=== PATIENT | male | born 1935 | race Asian ===

== ENCOUNTER 2018-09-28 05:49 | Inpatient (IN) | payer OTHER, MEDICAID ==
[~2018-09-28] VITALS: Ht 170.2 cm; Wt 59.0 kg
[2018-09-28 05:50] VITALS: BP 117/82
--- NOTE | 2018-09-28 06:00 | NUR ---
ED Nurse Note: Patient brought in by ambulance from home c/o generalized weakness, patient states that he began feeling weak yesterday, denies any pain, states that this weakness is a new onset, patient presents with sutures on the left thumb, states that a car door was slammed on it. patient is alert and oriented x4, is right sided hearing, patient hooked up to monitor, will wait for further orders
[2018-09-28 06:54] LABS: BASOPHILS % (AUTO) 2.2 % (0.0-2.0); EOSINOPHILS % (AUTO) 0.7 % (0.0-3.0); HEMATOCRIT 37.4 % (42.0-52.0); HEMOGLOBIN 12.7 G/DL (14.2-18.0); LYMPHOCYTES % (AUTO) 23.2 % (20.0-45.0); MEAN CORPUSCULAR VOLUME 94 FL (80-99); MONOCYTES % (AUTO) 6.5 % (1.0-10.0); NEUTROPHILS % (AUTO) 67.4 % (45.0-75.0); PLATELET COUNT 208 K/UL (150-450); RED BLOOD COUNT 3.98 M/UL (4.70-6.10); RED CELL DISTRIBUTION WIDTH 13.9 % (11.6-14.8); WHITE BLOOD COUNT 4.2 K/UL (4.8-10.8)
[2018-09-28 07:03] LABS: APPEARANCE,URINE CLEAR; BILIRUBIN, URINE NEGATIVE (NEGATIVE); COLOR,URINE PALE YELLOW; GLUCOSE, URINE (UA) NEGATIVE (NEGATIVE); KETONES,URINE NEGATIVE (NEGATIVE); LEUKOCYTE ESTERASE ,URINE 1+ (NEGATIVE); NITRITE,URINE NEGATIVE (NEGATIVE); PH,URINE 7 (4.5-8.0); PROTEIN,URINE NEGATIVE (NEGATIVE); UROBILINOGEN,URINE NORMAL MG/DL (0.0-1.0)
[2018-09-28 07:05] LABS: ANION GAP 11 mmol/L (5-15); BLOOD UREA NITROGEN 15 mg/dL (7-18); CARBON DIOXIDE 26 MMOL/L (21-32); CHLORIDE 102 MMOL/L (98-107); POTASSIUM 3.7 MMOL/L (3.5-5.1); SODIUM 139 MMOL/L (136-145)
--- NOTE | 2018-09-28 07:12 | Emergency Room Report ---
History of Present Illness General Chief Complaint: Generalized Weakness Source: Patient Present Illness HPI The patient presents via EMS. He is complaining about generalized weakness. He sprayed bojorquez spray in his house. He started feeling weak after this and short of breath with chest heaviness. Because of the smell in his house he went to stay in his car. Last night he was having chills. This morning he was having difficulty holding up his head and walking. The patient states he has not been drinking a lot of fluids because he does not want to have to get up to urinate. No fevers, chest pain, palpitations, nausea, vomiting, diarrhea, dysuria, abdominal pain, shortness of breath, depression, visual changes, headache. Decreased hearing Allergies: Coded Allergies: No Known Allergies (Unverified , 09/28/18) Patient History Past Medical History: see triage record Social History: Denies: smoking, alcohol use, drug use Social History Narrative At home Reviewed Nursing Documentation: PMH: Agreed; PSxH: Agreed Nursing Documentation-PMH Past Medical History: No Stated History Review of Systems All Other Systems: negative except mentioned in HPI Physical Exam Vital Signs Date Time Temp Pulse Resp B/P (MAP) Pulse Ox O2 Delivery O2 Flow Rate FiO2 09/28/18 05:44 97.9 92 18 147/82 (103) 94 Sp02 EP Interpretation: reviewed, normal General Appearance: well appearing, no apparent distress, GCS 15 Head: normocephalic Eyes: bilateral eye normal inspection, bilateral eye PERRL, bilateral eye EOMI ENT: dry mucus membranes, other Neck: supple Respiratory: lungs clear, normal breath sounds Cardiovascular #1: regular rate, rhythm Cardiovascular #2: 2+ radial (R) Gastrointestinal: normal inspection, normal bowel sounds, non tender, no mass, non-distended Genitourinary: no CVA tenderness Musculoskeletal: back normal, gait/station normal, normal range of motion, no calf tenderness Neurologic: alert, business transformation manager III-XII nml as tested, DTRs symmetric, sensory intact, speech normal, motor weakness - Diffuse, oriented - X2 Psychiatric: mood/affect normal Skin: normal inspection, warm/dry Medical Decision Making Diagnostic Impression: Primary Impression: Chest pressure Additional Impressions: Weakness Hypothyroid Qualified Codes: E03.9 - Hypothyroidism, unspecified Dehydration ER Course Patient presents with weakness after being exposed to Lance neck to side. Differential includes acute myocardial infarction, dehydration, sepsis, electrolyte abnormality, myasthenia gravis amongst others. The patient will be evaluated with EKG, chest x-ray and labs. The patient will receive IV hydration as he is clinically dehydrated. EKG with normal sinus rhythm occasional PVCs. Nonspecific ST-T wave changes. Long QT interval. Chest x-ray increased right hilum and COPD. Labs with elevated TSH. Initial troponin negative. Cortisol administered. Patient admitted to the hospital for further evaluation and possible old treatment of hypothyroidism. Slightly better with IV hydration. Laboratory Tests Test 09/28/18 06:30 White Blood Count 4.2 K/UL (4.8-10.8) L Red Blood Count 3.98 M/UL (4.70-6.10) L Hemoglobin 12.7 G/DL (14.2-18.0) L Hematocrit 37.4 % (42.0-52.0) L Mean Corpuscular Volume 94 FL (80-99) Mean Corpuscular Hemoglobin 32.0 PG (27.0-31.0) H Mean Corpuscular Hemoglobin Concent 34.0 G/DL (32.0-36.0) Red Cell Distribution Width 13.9 % (11.6-14.8) Platelet Count 208 K/UL (150-450) Mean Platelet Volume 5.0 FL (6.5-10.1) L Neutrophils (%) (Auto) 67.4 % (45.0-75.0) Lymphocytes (%) (Auto) 23.2 % (20.0-45.0) Monocytes (%) (Auto) 6.5 % (1.0-10.0) Eosinophils (%) (Auto) 0.7 % (0.0-3.0) Basophils (%) (Auto) 2.2 % (0.0-2.0) H Erythrocyte Sedimentation Rate 9 MM/HR (0-20) Prothrombin Time 10.5 SEC (9.30-11.50) Prothrombin Time INR 1.0 (0.9-1.1) PTT 28 SEC (23-33) Urine Color Pale yellow Urine Appearance Clear Urine pH 7 (4.5-8.0) Urine Specific [place] 1.015 (1.005-1.035) Urine Protein Negative (NEGATIVE) Urine Glucose (UA) Negative (NEGATIVE) Urine Ketones Negative (NEGATIVE) Urine Blood 1+ (NEGATIVE) H Urine Nitrite Negative (NEGATIVE) Urine Bilirubin Negative (NEGATIVE) Urine Urobilinogen Normal MG/DL (0.0-1.0) Urine Leukocyte Esterase 1+ (NEGATIVE) H Urine RBC 0-2 /HPF (0 - 0) H Urine WBC 0-2 /HPF (0 - 0) Urine Squamous Epithelial Cells Occasional /LPF Urine Calcium Oxalate Crystals Few /LPF (NONE) Urine Bacteria Occasional /HPF (NONE) Sodium Level 139 MMOL/L (136-145) Potassium Level 3.7 MMOL/L (3.5-5.1) Chloride Level 102 MMOL/L (98-107) Carbon Dioxide Level 26 MMOL/L (21-32) Anion Gap 11 mmol/L (5-15) Blood Urea Nitrogen 15 mg/dL (7-18) Creatinine 1.0 MG/DL (0.55-1.30) Estimate Glomerular Filtration Rate mL/min (>60) Glucose Level 142 MG/DL (74-106) H Lactic Acid Level 1.50 mmol/L (0.4-2.0) Uric Acid 5.1 MG/DL (2.6-7.2) Calcium Level 9.0 MG/DL (8.5-10.1) Magnesium Level 2.1 MG/DL (1.8-2.4) Total Bilirubin 0.9 MG/DL (0.2-1.0) Aspartate Amino Transferase (AST) 21 U/L (15-37) Alanine Aminotransferase (ALT) 20 U/L (12-78) Alkaline Phosphatase 55 U/L (46-116) Total Creatine Kinase 155 U/L (26-308) Troponin I 0.019 ng/mL (0.000-0.056) Pro-B-Type Natriuretic Peptide 1102 pg/mL (0-125) H Total Protein 7.0 G/DL (6.4-8.2) Albumin 3.6 G/DL (3.4-5.0) Globulin 3.4 g/dL Albumin/Globulin Ratio 1.1 (1.0-2.7) Lipase 144 U/L (73-393) Thyroid Stimulating Hormone (TSH) 6.012 uiU/mL (0.358-3.740) EKG Diagnostic Results Rate: normal Rhythm: NSR ST Segments: no acute changes ASA given to the pt in ED: Yes Rhythm Strip Diag. Results EP Interpretation: yes Rhythm: NSR, no PVC's, no ectopy Chest X-Ray Diagnostic Results Chest X-Ray Diagnostic Results : Chest X-Ray Ordered: Yes # of Views/Limited/Complete: 1 View Indication: Other EP Interpretation: Yes Interpretation: no consolidation, no effusion, no pneumothorax Impression: No acute disease Electronically Signed by: Electronically signed by Herman Kulkarni MD Last Vital Signs Date Time Temp Pulse Resp B/P (MAP) Pulse Ox O2 Delivery O2 Flow Rate FiO2 09/28/18 09:17 97.9 79 16 128/53 97 Room Air Status: improved Disposition: ADMITTED INPATIENT Condition: Serious Herman Kulkarni MD Sep 28, 2018 07:11
--- NOTE | 2018-09-28 07:16 | NUR ---
ED Nurse Note: received pt from JEAN CARLOS Collins. Pt resting in bed, a/ox4. Per RN, pt came to ER due to generalized weakness since yesterday. No labor breathing, able to answer in full sentences. All needs met. No s/s of distress. waiting for bed assignments.
[2018-09-28 07:17] LABS: ALANINE AMINOTRANSFERASE 20 U/L (12-78); ALBUMIN 3.6 G/DL (3.4-5.0); ALBUMIN/GLOBULIN RATIO 1.1 (1.0-2.7); ALKALINE PHOSPHATASE 55 U/L (46-116); ASPARTATE AMINO TRANSFERASE 21 U/L (15-37); BILIRUBIN,TOTAL 0.9 MG/DL (0.2-1.0); CREATINE KINASE 155 U/L (26-308)
[2018-09-28] MEDS ORDERED: Hydrocortisone 100mg Inj IV ONE (07:45)
[2018-09-28 07:55] VITALS: BP 125/73
--- NOTE | 2018-09-28 09:17 | NUR ---
TRANSFER TO FLOOR: Patient transferred to [facility] as ordered via [place] with lunchroom monitor . Report given to Chayito ELLIS and JEAN CARLOS Jacobsen. Belongings given to JEAN CARLOS Jacobsen. No s/s of distress.
[2018-09-28] MEDS ORDERED: Albuterol/Ipratropium 3ml neb HHN PRN (09:30)
[2018-09-28] MEDS ORDERED: Miralax 17gm pkt ORAL PRN (09:30)
[2018-09-28] MEDS ORDERED: Promethazine/Codeine 5ml UD ORAL PRN (09:30)
[2018-09-28] MEDS ORDERED: Morphine Sulfate 2mg/ml Inj(IV/IM USE ONLY) IVP PRN (09:30)
[2018-09-28] MEDS ORDERED: LORazepam Inj 2mg/ml 1ml IV PRN (09:30)
[2018-09-28] MEDS ORDERED: Nitroglycerin Subl 0.4mg tab SL PRN (09:30)
--- NOTE | 2018-09-28 10:00 | NUR ---
NURSE NOTES: Patient Transferred from Ed, and received report from Teddy/RN, Heart monitor placed, IV on left forearm, 20 gauge, patent, no bleeding or infiltration noted. Belonging check done. Vital signs are stable, No acute distress/SOB noted at this time. judy presented on admission with resolving DTI's R and L ischium and sacrococcygeal area and Non-blanchable erythema without fluctuance or induration noted to R and L heels. Pt denied tenderness when both heels minimally palpated. Picture taken and uploaded in [employer]. Bed in low position and locked, Call light within reach. Will continue plan of care.
[2018-09-28] MEDS: D5 1/2NS 1,000 ML IV SCH (10:26)
[2018-09-28 10:30] VITALS: BP 125/58
--- NOTE | 2018-09-28 10:55 | Diagnostic Imaging Report ---
Indication: Shortness of breath for one day Technique: One view of the chest Comparison: none Findings: Patient is rotated to the left. The heart is mildly enlarged. The aorta is tortuous and calcified. The lungs and pleural spaces are clear. There is thoracic scoliotic deformity Impression: No acute process Cardiomegaly Other findings as noted
--- NOTE | 2018-09-28 12:43 | NUR ---
ST NOTE: BEDSIDE SWALLOW EVAL RECEIVED BEDSIDE SWALLOW EVAL ORDER CHART REVIEWED PRIOR THE EVALUATION REFERRED BY DR. HERNADEZ, PRIMARY PHYSICIAN, DR. HARRIS PT IS A 83-YEAR-OLD MALE WHO WAS ADMITTED DUE TO WEAKNESS. PER PT, FEELING WEAKNESS; AND UNABLE TO SIT UP AND WALK. PT HAS H/O THORACIC SCOLIOTIC DEFORMITY AND HYPOTHYROIDISM. CURRENT STATUS: PT SEEN AT BEDSIDE IN LATE AM. RNYASEMIN, AT BEDSIDE. PT ALERT, COOPERATIVE, ABLE TO FOLLOW DIRECTION, ORIENTED. PT STATES STILL FEELING WEAK, UNABLE TO SIT UP AND WALK. DENIED ANY SWALLOWING DIFFICULTY.. GIVEN PO TRIALS: THIN(CUP-ONE SIP), PUREE(TSP) AND CRACKER X 1 INITIAL IMPRESSION: PT EDENTULOUS. (PER PT, HIS DENTURES ARE AT HOME. SLOW MASTICATION TIME, MILDLY INCREASED ORAL TRANSIT TIME(3 SECONDS) UNTIL PT INITIATED PHARYNGEAL SWALLOW, GOOD LARYNGEAL ELEVATION, NO OVERT S/S OF ASPIRATION WAS NOTED. OVERALL, PT'S SWALLOWING IS FUNCTIONAL. RECOMMENDATIONS: 1. SLOWLY INITIATE MECH SOFT(CHOPPED) WITH THIN LIQUIDS 2. GENERAL ASPIRATION PRECAUTIONS 3. ADVANCED DIET TOLERATED. POSTED ASPIRATION PRECAUTIONS
--- NOTE | 2018-09-28 13:00 | NUR ---
NURSE NOTES: Dr. Arevalo aware of DTI on patient's Ischium.
--- NOTE | 2018-09-28 13:28 | NUR ---
NURSE NOTES:WOUND CARE NOTES:Pt presented on admission with resolving DTPI's R and L ischium and sacrococcygeal area. Maroon discoloration with surrounding non-blanchable erythema without induration or fluctuance noted (L)1.2xcm x (W)0.7cm. Dark brown discoloration with marginal erythema along edges R ischium. Base of wound dry and firm.(L)4.5cm x (W)4.5cm. Dark brown discoloration partially opened L ischium. Base of wound is firm. No exudate noted. (L)4cm x (W)3.5cm. Periwound without erythema or induration.Non-blanchable erythema without fluctuance or induration noted to R and L heels. Pt denied tenderness when both heels minimally palpated. Pt demonstrated ability to reposition self when cued. Educated and encouraged pt to frequently turn while in bed and to avoid sliding against bed-linens to prevent further skin breakdown. Pt also instructed to call for asst with toileting to prevent prolonged exposure to urine or faeces. Tx.Plan. Apply Moisture Barrier Paste to sacrum ,R and L ischium .Cover each site with Optifoam drsgs. Change every 3 days and prn. Apply Cavilon Skin Barrier to R and L heels. Cover each heel with Optifoam drsg. Change every 7 days and prn. Encourage and assist as needed with repositioning at least every 2hours or as tolerated. Off-load heels with pillow.
--- NOTE | 2018-09-28 14:13 | Consultation ---
History of Present Illness General Date patient seen: Sep 28, 2018 Chief Complaint: Generalized Weakness Present Illness HPI 83 year old male presented via EMS to Er for evaluation of generalized weakness. He sprayed bojorquez spray in his house. He started feeling weak after this and short of breath with chest heaviness. Because of the smell in his house he went to stay in his car. Last night he was having chills. This morning he was having difficulty holding up his head and walking. He has not slept for the last two days. Allergies: Coded Allergies: No Known Allergies (Unverified , 09/28/18) Patient History Healthcare decision maker Resuscitation status Full Code Advanced Directive on File Review of Systems All Other Systems: negative except mentioned in HPI Physical Exam General Appearance: cachetic, thin Lines, tubes and drains: peripheral, central line HEENT: normocephalic, atraumatic Neck: non-tender, normal alignment Respiratory/Chest: chest wall non-tender, lungs clear Breasts: no masses Cardiovascular/Chest: normal rate Abdomen: normal bowel sounds, soft Genitourinary/Rectal: normal genital exam Last 24 Hour Vital Signs Date Time Temp Pulse Resp B/P (MAP) Pulse Ox O2 Delivery O2 Flow Rate FiO2 09/28/18 12:22 Room Air 09/28/18 12:11 Room Air 09/28/18 09:17 97.9 79 16 128/53 97 Room Air 09/28/18 07:55 97.9 73 18 125/73 98 Room Air 09/28/18 05:50 97.9 92 18 117/82 94 09/28/18 05:50 92 18 09/28/18 05:44 97.9 92 18 147/82 (103) 94 Laboratory Tests Test 09/28/18 06:30 White Blood Count 4.2 K/UL (4.8-10.8) L Red Blood Count 3.98 M/UL (4.70-6.10) L Hemoglobin 12.7 G/DL (14.2-18.0) L Hematocrit 37.4 % (42.0-52.0) L Mean Corpuscular Volume 94 FL (80-99) Mean Corpuscular Hemoglobin 32.0 PG (27.0-31.0) H Mean Corpuscular Hemoglobin Concent 34.0 G/DL (32.0-36.0) Red Cell Distribution Width 13.9 % (11.6-14.8) Platelet Count 208 K/UL (150-450) Mean Platelet Volume 5.0 FL (6.5-10.1) L Neutrophils (%) (Auto) 67.4 % (45.0-75.0) Lymphocytes (%) (Auto) 23.2 % (20.0-45.0) Monocytes (%) (Auto) 6.5 % (1.0-10.0) Eosinophils (%) (Auto) 0.7 % (0.0-3.0) Basophils (%) (Auto) 2.2 % (0.0-2.0) H Erythrocyte Sedimentation Rate 9 MM/HR (0-20) Prothrombin Time 10.5 SEC (9.30-11.50) Prothromb Time International Ratio 1.0 (0.9-1.1) Activated Partial Thromboplast Time 28 SEC (23-33) Urine Color Pale yellow Urine Appearance Clear Urine pH 7 (4.5-8.0) Urine Specific [place] 1.015 (1.005-1.035) Urine Protein Negative (NEGATIVE) Urine Glucose (UA) Negative (NEGATIVE) Urine Ketones Negative (NEGATIVE) Urine Blood 1+ (NEGATIVE) H Urine Nitrite Negative (NEGATIVE) Urine Bilirubin Negative (NEGATIVE) Urine Urobilinogen Normal MG/DL (0.0-1.0) Urine Leukocyte Esterase 1+ (NEGATIVE) H Urine RBC 0-2 /HPF (0 - 0) H Urine WBC 0-2 /HPF (0 - 0) Urine Squamous Epithelial Cells Occasional /LPF Urine Calcium Oxalate Crystals Few /LPF (NONE) Urine Bacteria Occasional /HPF (NONE) Sodium Level 139 MMOL/L (136-145) Potassium Level 3.7 MMOL/L (3.5-5.1) Chloride Level 102 MMOL/L (98-107) Carbon Dioxide Level 26 MMOL/L (21-32) Anion Gap 11 mmol/L (5-15) Blood Urea Nitrogen 15 mg/dL (7-18) Creatinine 1.0 MG/DL (0.55-1.30) Estimat Glomerular Filtration Rate mL/min (>60) Glucose Level 142 MG/DL (74-106) H Lactic Acid Level 1.50 mmol/L (0.4-2.0) Uric Acid 5.1 MG/DL (2.6-7.2) Calcium Level 9.0 MG/DL (8.5-10.1) Magnesium Level 2.1 MG/DL (1.8-2.4) Total Bilirubin 0.9 MG/DL (0.2-1.0) Aspartate Amino Transf (AST/SGOT) 21 U/L (15-37) Alanine Aminotransferase (ALT/SGPT) 20 U/L (12-78) Alkaline Phosphatase 55 U/L (46-116) Total Creatine Kinase 155 U/L (26-308) Troponin I 0.019 ng/mL (0.000-0.056) Pro-B-Type Natriuretic Peptide 1102 pg/mL (0-125) H Total Protein 7.0 G/DL (6.4-8.2) Albumin 3.6 G/DL (3.4-5.0) Globulin 3.4 g/dL Albumin/Globulin Ratio 1.1 (1.0-2.7) Lipase 144 U/L (73-393) Thyroid Stimulating Hormone (TSH) 6.012 uiU/mL (0.358-3.740) Height (Feet): 5 Height (Inches): 7.00 Weight (Pounds): 130 Medications Current Medications Medications (Trade) Dose Ordered Sig/[place] Route PRN Reason Start Time Stop Time Status Last Admin Dose Admin Acetaminophen (Tylenol) 650 mg Q4H PRN ORAL fever 09/28/18 09:30 10/28/18 09:29 Albuterol/ Ipratropium (Albuterol/ Ipratropium) 3 ml Q4H PRN HHN Shortness of Breath 09/28/18 09:30 10/03/18 09:29 Clonidine HCl (Catapres Tab) 0.1 mg Q4H PRN ORAL For High Blood Pressure 09/28/18 09:30 10/28/18 09:29 Dextrose (Dextrose 50%) 25 ml Q30M PRN IV Hypoglycemia 09/28/18 09:30 10/28/18 09:29 Dextrose (Dextrose 50%) 50 ml Q30M PRN IV Hypoglycemia 09/28/18 09:30 10/28/18 09:29 Dextrose/Sodium Chloride 1,000 ml @ 50 mls/hr Q20H IV 09/28/18 09:22 10/28/18 09:21 09/28/18 10:26 Heparin Sodium (Porcine) (Heparin 5000 units/ml) 5,000 units EVERY 12 HOURS SUBQ 09/28/18 21:00 10/28/18 20:59 Lorazepam (Ativan 2mg/ml 1ml) 0.5 mg Q4H PRN IV For Anxiety 09/28/18 09:30 10/05/18 09:29 Morphine Sulfate (Morphine Sulfate) 1 mg Q4H PRN IVP For Pain 7-09/28/18 09:30 10/05/18 09:29 Nitroglycerin (Ntg) 0.4 mg Q5M X 3 DOSES PRN SL Prn Chest Pain 09/28/18 09:30 10/28/18 09:29 Ondansetron HCl (Zofran) 4 mg Q6H PRN IVP Nausea & Vomiting 09/28/18 09:30 10/28/18 09:29 Polyethylene Glycol (Miralax) 17 gm HSPRN PRN ORAL Constipation 09/28/18 09:30 10/28/18 09:29 Promethazine HCl/ Codeine (Phenergan with Codeine) 5 ml Q4H PRN ORAL For Cough 09/28/18 09:30 10/28/18 09:29 Temazepam (Restoril) 15 mg HSPRN PRN ORAL Insomnia 09/28/18 09:30 10/05/18 09:29 Assessment/Plan Problem List: (1) Failure to thrive SNOMED: 87574977 (2) Severe protein-calorie malnutrition ICD Codes: E43 - Unspecified severe protein-calorie malnutrition SNOMED: 312706786, [id number], [id number] Assessment/Plan: calorie count swallow evaluation pt/ot dvt prophylaxis Fabrciio Arevalo MD Sep 28, 2018 14:13
--- NOTE | 2018-09-28 14:30 | NUR ---
PT EVALUATION NOTE Patient seen for initial evaluation, see complete evaluation for details. Patient presents with impaired ability to complete bed mobility and transfer activities and to ambulate due to generalized weakness and c/o dizziness. Patient will benefit from skilled inpatient PT intervention to address strength, balance, safety and functional mobility. Recommend discharge to SNF for short term rehab vs home with assistance as patient lives alone. DME needs to be determined based on patient progress, may need assistive device for ambulation (FWW vs SPC). Addendum: 09/28/18 at 1505 by RC MARTINEZ PT Amended: Links added.
[2018-09-28 16:00] VITALS: BP 112/51
--- NOTE | 2018-09-28 18:33 | Consultation ---
History of Present Illness General Date patient seen: Sep 28, 2018 Chief Complaint: Generalized Weakness Referring physician: Dr. Robles Present Illness HPI Roel Grover is a 83 year old male presented via EMS to [facility] for evaluation of generalized weakness. He sprayed bojorquez spray in his house. He started feeling weak after this and short of breath with chest heaviness. Because of the smell in his house he went to stay in his car. Last night he was having chills. This morning he was having difficulty holding up his head and walking. He has not slept for the last two days. Neurological consultation is requested for assessment of his weakness. Allergies: Coded Allergies: No Known Allergies (Unverified , 09/28/18) Medication History No Active Prescriptions or Reported Meds Patient History Healthcare decision maker Resuscitation status Full Code Advanced Directive on File Past Medical/Surgical History Past Medical/Surgical History: (1) Hypothyroid (2) Failure to thrive Physical Exam General Appearance: WD/WN, no apparent distress, alert, alert oriented x3 Lines, tubes and drains: peripheral HEENT: normocephalic, atraumatic, anicteric, mucous membranes moist, PERRL, EOMI, pharynx normal, supple, no JVD Neck: non-tender, normal alignment, supple, normal inspection Respiratory/Chest: lungs clear, normal breath sounds, no respiratory distress, no accessory muscle use Cardiovascular/Chest: normal peripheral pulses, normal rate, no JVD Last 24 Hour Vital Signs Date Time Temp Pulse Resp B/P (MAP) Pulse Ox O2 Delivery O2 Flow Rate FiO2 09/28/18 16:00 80 09/28/18 16:00 98.1 78 18 112/51 (71) 96 09/28/18 12:22 Room Air 09/28/18 12:11 Room Air 09/28/18 12:00 77 09/28/18 10:30 97.5 95 18 125/58 (80) 96 09/28/18 09:17 97.9 79 16 128/53 97 Room Air 09/28/18 07:55 97.9 73 18 125/73 98 Room Air 09/28/18 05:50 97.9 92 18 117/82 94 09/28/18 05:50 92 18 09/28/18 05:44 97.9 92 18 147/82 (103) 94 Laboratory Tests Test 09/28/18 06:30 White Blood Count 4.2 K/UL (4.8-10.8) L Red Blood Count 3.98 M/UL (4.70-6.10) L Hemoglobin 12.7 G/DL (14.2-18.0) L Hematocrit 37.4 % (42.0-52.0) L Mean Corpuscular Volume 94 FL (80-99) Mean Corpuscular Hemoglobin 32.0 PG (27.0-31.0) H Mean Corpuscular Hemoglobin Concent 34.0 G/DL (32.0-36.0) Red Cell Distribution Width 13.9 % (11.6-14.8) Platelet Count 208 K/UL (150-450) Mean Platelet Volume 5.0 FL (6.5-10.1) L Neutrophils (%) (Auto) 67.4 % (45.0-75.0) Lymphocytes (%) (Auto) 23.2 % (20.0-45.0) Monocytes (%) (Auto) 6.5 % (1.0-10.0) Eosinophils (%) (Auto) 0.7 % (0.0-3.0) Basophils (%) (Auto) 2.2 % (0.0-2.0) H Erythrocyte Sedimentation Rate 9 MM/HR (0-20) Prothrombin Time 10.5 SEC (9.30-11.50) Prothromb Time International Ratio 1.0 (0.9-1.1) Activated Partial Thromboplast Time 28 SEC (23-33) Urine Color Pale yellow Urine Appearance Clear Urine pH 7 (4.5-8.0) Urine Specific Ulman 1.015 (1.005-1.035) Urine Protein Negative (NEGATIVE) Urine Glucose (UA) Negative (NEGATIVE) Urine Ketones Negative (NEGATIVE) Urine Blood 1+ (NEGATIVE) H Urine Nitrite Negative (NEGATIVE) Urine Bilirubin Negative (NEGATIVE) Urine Urobilinogen Normal MG/DL (0.0-1.0) Urine Leukocyte Esterase 1+ (NEGATIVE) H Urine RBC 0-2 /HPF (0 - 0) H Urine WBC 0-2 /HPF (0 - 0) Urine Squamous Epithelial Cells Occasional /LPF Urine Calcium Oxalate Crystals Few /LPF (NONE) Urine Bacteria Occasional /HPF (NONE) Sodium Level 139 MMOL/L (136-145) Potassium Level 3.7 MMOL/L (3.5-5.1) Chloride Level 102 MMOL/L (98-107) Carbon Dioxide Level 26 MMOL/L (21-32) Anion Gap 11 mmol/L (5-15) Blood Urea Nitrogen 15 mg/dL (7-18) Creatinine 1.0 MG/DL (0.55-1.30) Estimat Glomerular Filtration Rate mL/min (>60) Glucose Level 142 MG/DL (74-106) H Lactic Acid Level 1.50 mmol/L (0.4-2.0) Uric Acid 5.1 MG/DL (2.6-7.2) Calcium Level 9.0 MG/DL (8.5-10.1) Magnesium Level 2.1 MG/DL (1.8-2.4) Total Bilirubin 0.9 MG/DL (0.2-1.0) Aspartate Amino Transf (AST/SGOT) 21 U/L (15-37) Alanine Aminotransferase (ALT/SGPT) 20 U/L (12-78) Alkaline Phosphatase 55 U/L (46-116) Total Creatine Kinase 155 U/L (26-308) Troponin I 0.019 ng/mL (0.000-0.056) Pro-B-Type Natriuretic Peptide 1102 pg/mL (0-125) H Total Protein 7.0 G/DL (6.4-8.2) Albumin 3.6 G/DL (3.4-5.0) Globulin 3.4 g/dL Albumin/Globulin Ratio 1.1 (1.0-2.7) Lipase 144 U/L (73-393) Thyroid Stimulating Hormone (TSH) 6.012 uiU/mL (0.358-3.740) Height (Feet): 5 Height (Inches): 7.00 Weight (Pounds): 130 Medications Current Medications Medications (Trade) Dose Ordered Sig/Eugenia Route PRN Reason Start Time Stop Time Status Last Admin Dose Admin Acetaminophen (Tylenol) 650 mg Q4H PRN ORAL fever 09/28/18 09:30 10/28/18 09:29 Albuterol/ Ipratropium (Albuterol/ Ipratropium) 3 ml Q4H PRN HHN Shortness of Breath 09/28/18 09:30 10/03/18 09:29 Clonidine HCl (Catapres Tab) 0.1 mg Q4H PRN ORAL For High Blood Pressure 09/28/18 09:30 10/28/18 09:29 Dextrose (Dextrose 50%) 25 ml Q30M PRN IV Hypoglycemia 09/28/18 09:30 10/28/18 09:29 Dextrose (Dextrose 50%) 50 ml Q30M PRN IV Hypoglycemia 09/28/18 09:30 10/28/18 09:29 Dextrose/Sodium Chloride 1,000 ml @ 50 mls/hr Q20H IV 09/28/18 09:22 10/28/18 09:21 09/28/18 10:26 Heparin Sodium (Porcine) (Heparin 5000 units/ml) 5,000 units EVERY 12 HOURS SUBQ 09/28/18 21:00 10/28/18 20:59 Lorazepam (Ativan 2mg/ml 1ml) 0.5 mg Q4H PRN IV For Anxiety 09/28/18 09:30 10/05/18 09:29 Morphine Sulfate (Morphine Sulfate) 1 mg Q4H PRN IVP For Pain 10-2409/28/18 09:30 10/05/18 09:29 Nitroglycerin (Ntg) 0.4 mg Q5M X 3 DOSES PRN SL Prn Chest Pain 09/28/18 09:30 10/28/18 09:29 Ondansetron HCl (Zofran) 4 mg Q6H PRN IVP Nausea & Vomiting 09/28/18 09:30 10/28/18 09:29 Polyethylene Glycol (Miralax) 17 gm HSPRN PRN ORAL Constipation 09/28/18 09:30 10/28/18 09:29 Promethazine HCl/ Codeine (Phenergan with Codeine) 5 ml Q4H PRN ORAL For Cough 09/28/18 09:30 10/28/18 09:29 Temazepam (Restoril) 15 mg HSPRN PRN ORAL Insomnia 09/28/18 09:30 10/05/18 09:29 Assessment/Plan Problem List: (1) Dehydration ICD Codes: E86.0 - Dehydration SNOMED: 82598053 (2) Chest pressure ICD Codes: R07.89 - Other chest pain SNOMED: 020122689 (3) Hypothyroid Assessment & Plan: Commence Levothyroxine at 25mcg with possible increase to 35 -50mcg. ICD Codes: E03.9 - Hypothyroidism, unspecified SNOMED: 69668249 Qualifiers: Qualified Codes: E03.9 - Hypothyroidism, unspecified (4) Weakness ICD Codes: R53.1 - Weakness SNOMED: 46885510 (5) Failure to thrive SNOMED: 89206269 (6) Severe protein-calorie malnutrition ICD Codes: E43 - Unspecified severe protein-calorie malnutrition SNOMED: 288088030, 627625374, 233768950 Assessment/Plan: Correct Hypothyroid Na 135-145 PT Eval IV Hydration Echocardiogram recommended Care as per cardiology Q4 Hr Neuro Obs Asa 81mg ST Magaly Navas N.P. Sep 28, 2018 18:33
--- NOTE | 2018-09-28 19:30 | History and Physical Report ---
DATE OF ADMISSION: 09/28/2018 TIME SEEN: 1 p.m. CONSULTANTS: 1. Fabricio Arevalo M.D. 2. Demar Flores M.D. 3. 4. Roger Ny M.D. CHIEF COMPLAINT: Weakness, hypothyroid, insomnia. BRIEF HISTORY: The patient is an 83-year-old male, who lives at home, presents last night feeling weak after standing up suddenly. The patient also has been insomniac for three days and started on possible hypothyroid medication, came in [facility] of [facility] [place] [facility] and admitted to telemetry for further care. Currently, calm in bed, sleeping, no complaint. REVIEW OF SYSTEMS: No chest pain. No shortness of breath. No nausea, vomiting, or diarrhea. PAST MEDICAL HISTORY: Includes insomnia and possible hypothyroid. PAST SURGICAL HISTORY: Left pinky surgery. MEDICATIONS: Include heparin, albuterol, temazepam, lorazepam, Zofran, hydrocortisone. ALLERGIES: Denies. SOCIAL HISTORY: No smoking. No alcohol. No intravenous drug abuse. FAMILY HISTORY: Noncontributory. PHYSICAL EXAMINATION: GENERAL: Calm in bed, oriented x3, slightly weak. VITAL SIGNS: Show temperature is 97 degrees, pulse 89, respiratory rate 16, blood pressure 128/53. CARDIOVASCULAR: No murmurs. LUNGS: Distant and clear. ABDOMEN: Bowel sounds positive. Nontender and nondistended. EXTREMITIES: Showed no cyanosis or edema. NEUROLOGIC: The patient moves all extremities, slightly weak. LABORATORY AND DIAGNOSTIC DATA: Labs show white count 4.2, hemoglobin and hematocrit 12/37, platelets 208. BMP show glucose 142. Troponin 0.019. BNP is 1102. TSH is 6.012. Urinalysis show 1+ leukocyte esterase. ASSESSMENT: 1. Weakness. 2. Hypothyroid. 3. Urinary tract infection. 4. Possible ACS. 5. Anemia. 6. Insomnia. PLAN: 1. PT, OT, and dietary followup. 2. Antibiotics per Infectious Diseases. 3. Endocrine evaluation, Synthroid. 4. Cardiology evaluation. 5. We will continue to follow the patient. 6. CBC and BMP in the morning. Mendel Robles, D.O. DR: Jagdeep JOB#: [id number] CC:
--- NOTE | 2018-09-28 19:32 | NUR ---
HAND-OFF: Report given to Jordin/RN, Patient is awake and alert, No acute distress/SOB noted. Family at the bedside. Endorsed plan of care.
--- NOTE | 2018-09-28 19:33 | NUR ---
NURSE NOTES: Got report from Ro RN. Pt in stable condition. Denies any pain. No s/s of distress or discomfort noted. Pt resting in bed comfortably. Bed in low and locked position, call light within reach, bedside table within reach. Continue to monitor.
[2018-09-28 20:00] VITALS: BP 100/55
[2018-09-28] MEDS: Heparin 5000 units/ml inj SUBQ SCH (20:54)
[2018-09-29] VITALS: BP 104/50
--- NOTE | 2018-09-29 01:31 | Consultation ---
DATE OF CONSULTATION: 09/29/2018 CONSULTING PHYSICIAN: Herman Torres M.D. REQUESTING PHYSICIAN: Mendel Robles D.O. REASON FOR CONSULTATION: Possible acute coronary syndrome. HISTORY OF PRESENT ILLNESS: I was asked to see this patient in cardiology consultation while covering for Dr. Ny. The patient is an 83-year-old and he presented to the emergency room with generalized weakness this morning. He correlates this with possibly spraying spraying in his house and subsequently getting chest heaviness and shortness of breath. He apparently also had chills last evening and has not been able to sleep for the past two days as he has had to stay out of his house. The patient was seen in the emergency room. He had a troponin level of 0.019 and abnormal natriuretic peptide assay of around 1000. PAST MEDICAL HISTORY: Includes hypertension, hypothyroidism, osteoarthritis, and dementia. MEDICATIONS: Reviewed and reconciled. ALLERGIES: None known. FAMILY HISTORY: Noncontributory. SOCIAL HISTORY: Negative for smoking, alcohol, or substance abuse. REVIEW OF SYSTEMS: No fevers or chills. No history of abnormal blood clotting or asthma. No prior history of heart attack. No history of prostate cancer. No history of seizure or stroke. No history of diabetes. He is on thyroid replacement. PHYSICAL EXAMINATION: VITAL SIGNS: Afebrile, blood pressure 147/82, pulse 92, respirations 18, and oxygen saturation 94%. GENERAL: Appears well for age. No distress. HEENT: Pupils are reactive. Oropharynx clear. Mucous membranes moist. NECK: Supple. Jugular venous pressure normal. LUNGS: Clear. CARDIAC: Regular rhythm and rate. Normal S1 and S2 with no murmur. ABDOMEN: Soft and nontender. EXTREMITIES: No edema. NEUROLOGIC: Nonfocal. LABORATORY DATA: An echocardiogram revealed ejection fraction of 45% with mild regurgitation. No pulmonary hypertension. EKG - sinus rhythm, occasional PVC, and nonspecific ST-T wave change with QT prolongation. Chest x-ray with hyperinflation. White count 4.3 and hemoglobin 12.7. Magnesium was 2.1. Potassium 3.7, BUN 15, creatinine 1.0, and albumin 3.6. TSH was 6. Troponin 0.019. Lactic acid 1.5. Pro-natriuretic peptide is elevated at 1000. IMPRESSION: 1. Possible acute coronary syndrome. 2. Acute on chronic diastolic and systolic congestive heart failure. 3. Hypertensive heart disease. 4. Orthostasis. PLAN: 1. Check orthostatics. 2. Maintain adequate hydration. 3. Hold antihypertensives for now. 4. Antiplatelet therapy with aspirin. 5. Serial troponin level. 6. Thyroid replacement therapy. 7. DVT prophylaxis. Herman Torres M.D. DR: JEREMIAH JOB#: [id number] CC:
[2018-09-29 04:13] VITALS: BP 106/56
[2018-09-29] MEDS: D5 1/2NS 1,000 ML IV SCH (05:45)
--- NOTE | 2018-09-29 07:00 | NUR ---
HAND-OFF: Report given to Ruth EVANGELISTA. Endorsed plan of care.
[2018-09-29 07:08] LABS: AMMONIA 14 umol/L (11-32); BASOPHILS % (AUTO) 2.3 % (0.0-2.0); HEMATOCRIT 37.2 % (42.0-52.0); HEMOGLOBIN 12.8 G/DL (14.2-18.0); LYMPHOCYTES % (AUTO) 36.3 % (20.0-45.0); MEAN CORPUSCULAR VOLUME 93 FL (80-99); MONOCYTES % (AUTO) 9.6 % (1.0-10.0); NEUTROPHILS % (AUTO) 48.7 % (45.0-75.0); PLATELET COUNT 192 K/UL (150-450); RED CELL DISTRIBUTION WIDTH 13.2 % (11.6-14.8)
[2018-09-29 07:39] LABS: ANION GAP 6 mmol/L (5-15); BLOOD UREA NITROGEN 10 mg/dL (7-18); CALCIUM 8.2 MG/DL (8.5-10.1); CARBON DIOXIDE 27 MMOL/L (21-32); CHLORIDE 108 MMOL/L (98-107); CREATININE 0.9 MG/DL (0.55-1.30); POTASSIUM 3.4 MMOL/L (3.5-5.1); SODIUM 141 MMOL/L (136-145)
[2018-09-29 07:52] LABS: ALANINE AMINOTRANSFERASE 15 U/L (12-78); ALBUMIN 3.2 G/DL (3.4-5.0); ALBUMIN/GLOBULIN RATIO 1.4 (1.0-2.7); ALKALINE PHOSPHATASE 44 U/L (46-116); ASPARTATE AMINO TRANSFERASE 15 U/L (15-37); BILIRUBIN,TOTAL 1.1 MG/DL (0.2-1.0); CHOLESTEROL 158 MG/DL (< 200); HDL CHOLESTEROL 52 MG/DL (40-60); TRIGLYCERIDES 60 MG/DL (30-150)
[2018-09-29 07:53] LABS: BILIRUBIN,DIRECT 0.2 MG/DL (0.0-0.3)
--- NOTE | 2018-09-29 07:59 | NUR ---
received report from Alexei EVANGELISTA. Pt sleeping comfortably in bed, woke up to speak to nurses while giving report. Pt on panel monitor shows no signs of cardiac or respiratory distress. Bed is locked and in lowest position. Call light with in reach. will continue to monitor and follow plan of care.
[2018-09-29 08:30] VITALS: BP 107/55
--- NOTE | 2018-09-29 08:53 | Pulmonology Progress Note ---
Assessment/Plan Assessment/Plan ASSESSMENT acute CHF systolic and diastolic Hx of HTN with HTN heart disease Dehydration Severe protein calorie malnutrition Hypothyroidism with elevated TSH ? new onset, Failure to thrive PLAN OF CARE tele ECHO with rEF 45%, global LV hypokinesis, gr 2 diastolic dysfunction fup with cardio recs hold anti HTN for now troponin x 2 negative ; tele with SR, no acute ischemic changes; pt ruled out for acute SD check orthostatic VS O2 PRN to keep pulse ox above 90% pulmonary toilet PRN s/p Solu-Cortef x1 gentle IV fluids replace K, check K and Mg in am monitor renal parameters, lytes start levothyroxine 25 mcg day, repeat TSH in 3 wks carotid duplex Venous duplex swallow eval done, diet texture as per ST recs dietary eval re protein supplements calorie count PT eval and treatment DVT prophylaxis supportive care case discussed and evaluated by supervising physician case discussed and evaluated by supervising physician Subjective Allergies: Coded Allergies: No Known Allergies (Unverified , 09/28/18) Subjective denies chest pain, pulse ox stable on RA Objective Last 24 Hour Vital Signs Date Time Temp Pulse Resp B/P (MAP) Pulse Ox O2 Delivery O2 Flow Rate FiO2 09/29/18 08:30 97.7 89 20 107/55 (72) 95 09/29/18 04:13 97.7 75 18 106/56 (73) 96 09/29/18 04:00 75 09/29/18 00:00 97.5 72 18 104/50 (68) 96 09/29/18 00:00 68 09/28/18 23:43 Room Air 09/28/18 20:00 97.8 76 16 100/55 (70) 96 09/28/18 20:00 76 09/28/18 18:50 84 18 99 Room Air 21 09/28/18 16:00 80 09/28/18 16:00 98.1 78 18 112/51 (71) 96 09/28/18 12:22 Room Air 09/28/18 12:11 Room Air 09/28/18 12:00 77 09/28/18 10:30 97.5 95 18 125/58 (80) 96 09/28/18 09:17 97.9 79 16 128/53 97 Room Air Intake and Output 09/28/18 09/29/18 19:00 07:00 # Voids 2 General Appearance: no acute distress, other - very pleasant thin elderly male in NAD HEENT: normocephalic, mucous membranes moist Respiratory/Chest: lungs clear - with moderate air exchange Cardiovascular: normal rate Abdomen: normal bowel sounds, soft, non tender, non distended Extremities: no edema, pedal pulses normal Neurologic/Psychiatric: abnormal gait, alert, responsive Musculoskeletal: atrophy - BLE Laboratory Tests 09/29/18 06:35: White Blood Count 5.0, Red Blood Count 4.00L, Hemoglobin 12.8L, Hematocrit 37.2L , Mean Corpuscular Volume 93, Mean Corpuscular Hemoglobin 31.9H, Mean Corpuscular Hemoglobin Concent 34.4, Red Cell Distribution Width 13.2, Platelet Count 192, Mean Platelet Volume 5.6L, Neutrophils (%) (Auto) 48.7, Lymphocytes ( %) (Auto) 36.3, Monocytes (%) (Auto) 9.6, Eosinophils (%) (Auto) 3.0, Basophils (%) (Auto) 2.3H, Prothrombin Time 10.9, Prothromb Time International Ratio 1.0, Activated Partial Thromboplast Time 29, Sodium Level 141, Potassium Level 3.4L, Chloride Level 108H, Carbon Dioxide Level 27, Anion Gap 6, Blood Urea Nitrogen 10, Creatinine 0.9, Estimat Glomerular Filtration Rate , Glucose Level 111H, Calcium Level 8.2L, Total Bilirubin 1.1H, Direct Bilirubin 0.2, Aspartate Amino Transf (AST/SGOT) 15, Alanine Aminotransferase (ALT/SGPT) 15, Alkaline Phosphatase 44L, Ammonia 14, Troponin I 0.018, Total Protein 5.5L, Albumin 3.2L , Globulin 2.3, Albumin/Globulin Ratio 1.4, Triglycerides Level 60, Cholesterol Level 158, LDL Cholesterol 98, HDL Cholesterol 52, Cholesterol/HDL Ratio 3.0L, Thyroid Stimulating Hormone (TSH) 8.019H Current Medications Medications (Trade) Dose Ordered Sig/Eugenia Route PRN Reason Start Time Stop Time Status Last Admin Dose Admin Acetaminophen (Tylenol) 650 mg Q4H PRN ORAL fever 09/28/18 09:30 10/28/18 09:29 Albuterol/ Ipratropium (Albuterol/ Ipratropium) 3 ml Q4H PRN HHN Shortness of Breath 09/28/18 09:30 10/03/18 09:29 Aspirin (Ecotrin) 81 mg DAILY ORAL 09/29/18 09:00 10/29/18 08:59 Clonidine HCl (Catapres Tab) 0.1 mg Q4H PRN ORAL For High Blood Pressure 09/28/18 09:30 10/28/18 09:29 Dextrose (Dextrose 50%) 25 ml Q30M PRN IV Hypoglycemia 09/28/18 09:30 10/28/18 09:29 Dextrose (Dextrose 50%) 50 ml Q30M PRN IV Hypoglycemia 09/28/18 09:30 10/28/18 09:29 Dextrose/Sodium Chloride 1,000 ml @ 50 mls/hr Q20H IV 09/28/18 09:22 10/28/18 09:21 09/29/18 05:45 Heparin Sodium (Porcine) (Heparin 5000 units/ml) 5,000 units EVERY 12 HOURS SUBQ 09/28/18 21:00 10/28/18 20:59 09/28/18 20:54 Lorazepam (Ativan 2mg/ml 1ml) 0.5 mg Q4H PRN IV For Anxiety 09/28/18 09:30 10/05/18 09:29 Morphine Sulfate (Morphine Sulfate) 1 mg Q4H PRN IVP For Pain 7-10 09/28/18 09:30 10/05/18 09:29 Nitroglycerin (Ntg) 0.4 mg Q5M X 3 DOSES PRN SL Prn Chest Pain 09/28/18 09:30 10/28/18 09:29 Ondansetron HCl (Zofran) 4 mg Q6H PRN IVP Nausea & Vomiting 09/28/18 09:30 10/28/18 09:29 Polyethylene Glycol (Miralax) 17 gm HSPRN PRN ORAL Constipation 09/28/18 09:30 10/28/18 09:29 Promethazine HCl/ Codeine (Phenergan with Codeine) 5 ml Q4H PRN ORAL For Cough 09/28/18 09:30 10/28/18 09:29 Temazepam (Restoril) 15 mg HSPRN PRN ORAL Insomnia 09/28/18 09:30 10/05/18 09:29 09/28/18 20:50 Allie Barboza AIR ANALYST Sep 29, 2018 08:53
--- NOTE | 2018-09-29 09:20 | Diagnostic Imaging Report ---
APPROVED REPORT CPT Code: 82140 Present Symptoms Comments: BILATERAL LEGS PAIN. BILATERAL: Imaging reveals a patent deep venous system bilaterally. There is no evidence of thrombus within the femoral, popliteal or tibial segments. The greater saphenous veins are also within normal limits. Doppler indicates normal spontaneous flow within these segments.
--- NOTE | 2018-09-29 09:21 | Diagnostic Imaging Report ---
APPROVED REPORT CPT Code: 14439 Vascular Symptoms Comments: CVA. CAROTID (BILATERAL) - Imaging reveals no significant plaque within the right and left extracranial carotid arteries. The Doppler spectral flow analysis is within normal limits throughout the extracranial carotid arteries bilaterally. VERTEBRAL- The vertebral arteries are within normal limits.
[2018-09-29] MEDS: Aspirin EC 81mg tab ORAL SCH (09:32)
[2018-09-29] MEDS: Heparin 5000 units/ml inj SUBQ SCH ×2 (09:35→21:33)
--- NOTE | 2018-09-29 09:37 | General Progress Note ---
Assessment/Plan Problem List: (1) Weakness ICD Codes: R53.1 - Weakness SNOMED: 14266931 (2) Hypothyroid ICD Codes: E03.9 - Hypothyroidism, unspecified SNOMED: 55922796 Qualifiers: Qualified Codes: E03.9 - Hypothyroidism, unspecified (3) Dehydration ICD Codes: E86.0 - Dehydration SNOMED: 77479580 (4) Chest pressure ICD Codes: R07.89 - Other chest pain SNOMED: 704678187 Status: unchanged Assessment/Plan: pt diet cardio neph endo f/u cbc bmp am Subjective Constitutional: Reports: weakness Allergies: Coded Allergies: No Known Allergies (Unverified , 09/28/18) All Systems: reviewed and negative except above Subjective sleepy calm Objective Last 24 Hour Vital Signs Date Time Temp Pulse Resp B/P (MAP) Pulse Ox O2 Delivery O2 Flow Rate FiO2 09/29/18 08:30 97.7 89 20 107/55 (72) 95 09/29/18 04:13 97.7 75 18 106/56 (73) 96 09/29/18 04:00 75 09/29/18 00:00 97.5 72 18 104/50 (68) 96 09/29/18 00:00 68 09/28/18 23:43 Room Air 09/28/18 20:00 97.8 76 16 100/55 (70) 96 09/28/18 20:00 76 09/28/18 18:50 84 18 99 Room Air 21 09/28/18 16:00 80 09/28/18 16:00 98.1 78 18 112/51 (71) 96 09/28/18 12:22 Room Air 09/28/18 12:11 Room Air 09/28/18 12:00 77 09/28/18 10:30 97.5 95 18 125/58 (80) 96 Intake and Output 09/28/18 09/29/18 19:00 07:00 # Voids 2 Laboratory Tests 09/29/18 06:35: White Blood Count 5.0, Red Blood Count 4.00L, Hemoglobin 12.8L, Hematocrit 37.2L , Mean Corpuscular Volume 93, Mean Corpuscular Hemoglobin 31.9H, Mean Corpuscular Hemoglobin Concent 34.4, Red Cell Distribution Width 13.2, Platelet Count 192, Mean Platelet Volume 5.6L, Neutrophils (%) (Auto) 48.7, Lymphocytes ( %) (Auto) 36.3, Monocytes (%) (Auto) 9.6, Eosinophils (%) (Auto) 3.0, Basophils (%) (Auto) 2.3H, Prothrombin Time 10.9, Prothromb Time International Ratio 1.0, Activated Partial Thromboplast Time 29, Sodium Level 141, Potassium Level 3.4L, Chloride Level 108H, Carbon Dioxide Level 27, Anion Gap 6, Blood Urea Nitrogen 10, Creatinine 0.9, Estimat Glomerular Filtration Rate , Glucose Level 111H, Calcium Level 8.2L, Total Bilirubin 1.1H, Direct Bilirubin 0.2, Aspartate Amino Transf (AST/SGOT) 15, Alanine Aminotransferase (ALT/SGPT) 15, Alkaline Phosphatase 44L, Ammonia 14, Troponin I 0.018, Total Protein 5.5L, Albumin 3.2L , Globulin 2.3, Albumin/Globulin Ratio 1.4, Triglycerides Level 60, Cholesterol Level 158, LDL Cholesterol 98, HDL Cholesterol 52, Cholesterol/HDL Ratio 3.0L, Thyroid Stimulating Hormone (TSH) 8.019H Height (Feet): 5 Height (Inches): 7.00 Weight (Pounds): 130 General Appearance: lethargic EENT: normal ENT inspection Neck: normal alignment Cardiovascular: normal peripheral pulses, normal rate, regular rhythm Respiratory/Chest: chest wall non-tender, lungs clear, normal breath sounds Abdomen: normal bowel sounds, non tender, soft Extremities: normal inspection Edema: no edema noted Arm (L), no edema noted Arm (R), no edema noted Leg (L), no edema noted Leg (R), no edema noted Pedal (L), no edema noted Pedal (R), no edema noted Generalized Neurologic: responsive, motor weakness Skin: normal pigmentation, warm/dry Mendel Robles DO Sep 29, 2018 09:37
[2018-09-29 12:00] VITALS: BP 114/61
--- NOTE | 2018-09-29 12:13 | Consultation ---
Consult Note Consult Note # [id number] Joey Sparrow MD Sep 29, 2018 12:13
[2018-09-29 16:00] VITALS: BP 119/60
--- NOTE | 2018-09-29 18:15 | Consultation ---
DATE OF CONSULTATION: 09/29/2018 INFECTIOUS DISEASE CONSULTATION CONSULTING PHYSICIAN: Joey Sparrow M.D. REFERRING PHYSICIAN: Mendel Robles D.O. REASON FOR CONSULTATION: Evaluation of the patient for possible sepsis. HISTORY OF PRESENT ILLNESS: The patient is an 83-year-old male, who had a left fifth toe injury about 10 days ago and subsequently, the patient had suture in the area. The patient's place was treated with insecticides yesterday. Later, the patient came home, slept, and at around 10 p.m., the patient felt dizzy and started to walk out of the home and he felt the dizziness got worse and had a fall. A 911 was called. The patient was brought to the hospital. Infectious Disease consultation has been requested for further evaluation of the patient for possible sepsis as the patient's contributing factor to the symptoms and weakness. PAST MEDICAL HISTORY: Hypothyroidism. ALLERGIES: No known drug allergies. SOCIAL HISTORY: No history of alcohol or drug abuse. FAMILY HISTORY: Not contributing. REVIEW OF SYSTEMS: HEENT: No recent change in vision or hearing. The patient has dizziness as mentioned above. PULMONARY: No cough or shortness of breath. CARDIOVASCULAR: No chest pain or palpitations. GASTROINTESTINAL: No nausea or vomiting. GENITOURINARY: No dysuria. MUSCULOSKELETAL: As mentioned above. NEUROLOGIC: As mentioned above. PHYSICAL EXAMINATION: VITAL SIGNS: Temperature 97.7, blood pressure 107/55, pulse 86, and respiratory rate 18. HEENT: No pale conjunctiva. No icterus. NECK: No lymphadenopathy. CHEST: Clear. HEART: S1 and S2. ABDOMEN: Soft and nontender. EXTREMITIES: The patient has a left fifth toe suture and swollen. No evidence of inflammation or infection. NEUROLOGIC: Awake and alert. LABORATORY AND DIAGNOSTIC DATA: White blood cells 5, hemoglobin 12, and platelets 192,000. BUN 10 and creatinine 0.8. AST, ALT, and alkaline phosphatase, unremarkable. TSH 8. Chest x-ray, no acute process. Venous Doppler, no evidence of DVT. ASSESSMENT: The patient is an 83-year-old male with, 1. Status post fall. Based on the history, no evidence of infectious process. 2. Afebrile. 3. Normal white blood cells. 4. Left fifth finger, no evidence of cellulitis. 5. Rule out probable bacteremia. PLAN: 1. We will monitor the patient off of antibiotics in view of the patient being clinically stable. 2. Monitor CBC. 3. Monitor BMP. 4. We will send blood culture. 5. Based on the patient's clinical course and laboratories, we will do further recommendations. Thank you for this consultation. We will follow the patient with you. Joey Sparrow M.D. DR: WILMER JOB#: [id number] CC:
--- NOTE | 2018-09-29 19:40 | NUR ---
HAND-OFF: Report given to Delgado RN pt in stable condition no sign of cardiac or respiratory distress.
[2018-09-29 20:00] VITALS: BP 123/69
--- NOTE | 2018-09-29 23:37 | Neurology Progress Note ---
Objective Physical Exam Last Vital Signs Date Time Temp Pulse Resp B/P (MAP) Pulse Ox O2 Delivery O2 Flow Rate FiO2 09/29/18 21:00 Room Air 09/29/18 21:00 88 89 93 09/29/18 20:00 97.4 19 123/69 (87) 96 09/29/18 09:50 21 Laboratory Tests Test 09/29/18 06:35 White Blood Count 5.0 K/UL (4.8-10.8) Red Blood Count 4.00 M/UL (4.70-6.10) L Hemoglobin 12.8 G/DL (14.2-18.0) L Hematocrit 37.2 % (42.0-52.0) L Mean Corpuscular Volume 93 FL (80-99) Mean Corpuscular Hemoglobin 31.9 PG (27.0-31.0) H Mean Corpuscular Hemoglobin Concent 34.4 G/DL (32.0-36.0) Red Cell Distribution Width 13.2 % (11.6-14.8) Platelet Count 192 K/UL (150-450) Mean Platelet Volume 5.6 FL (6.5-10.1) L Neutrophils (%) (Auto) 48.7 % (45.0-75.0) Lymphocytes (%) (Auto) 36.3 % (20.0-45.0) Monocytes (%) (Auto) 9.6 % (1.0-10.0) Eosinophils (%) (Auto) 3.0 % (0.0-3.0) Basophils (%) (Auto) 2.3 % (0.0-2.0) H Prothrombin Time 10.9 SEC (9.30-11.50) Prothromb Time International Ratio 1.0 (0.9-1.1) Activated Partial Thromboplast Time 29 SEC (23-33) Sodium Level 141 MMOL/L (136-145) Potassium Level 3.4 MMOL/L (3.5-5.1) L Chloride Level 108 MMOL/L (98-107) H Carbon Dioxide Level 27 MMOL/L (21-32) Anion Gap 6 mmol/L (5-15) Blood Urea Nitrogen 10 mg/dL (7-18) Creatinine 0.9 MG/DL (0.55-1.30) Estimat Glomerular Filtration Rate mL/min (>60) Glucose Level 111 MG/DL (74-106) H Calcium Level 8.2 MG/DL (8.5-10.1) L Total Bilirubin 1.1 MG/DL (0.2-1.0) H Direct Bilirubin 0.2 MG/DL (0.0-0.3) Aspartate Amino Transf (AST/SGOT) 15 U/L (15-37) Alanine Aminotransferase (ALT/SGPT) 15 U/L (12-78) Alkaline Phosphatase 44 U/L (46-116) L Ammonia 14 umol/L (11-32) Troponin I 0.018 ng/mL (0.000-0.056) Total Protein 5.5 G/DL (6.4-8.2) L Albumin 3.2 G/DL (3.4-5.0) L Globulin 2.3 g/dL Albumin/Globulin Ratio 1.4 (1.0-2.7) Triglycerides Level 60 MG/DL (30-150) Cholesterol Level 158 MG/DL (< 200) LDL Cholesterol 98 mg/dL (<100) HDL Cholesterol 52 MG/DL (40-60) Cholesterol/HDL Ratio 3.0 (3.3-4.4) L Thyroid Stimulating Hormone (TSH) 8.019 uiU/mL (0.358-3.740) Impression/Recommendations Problems: (1) Dehydration (2) Chest pressure (3) Hypothyroid Assessment & Plan: Commence Levothyroxine at 25mcg with possible increase to 35 -50mcg. (4) Weakness (5) Failure to thrive (6) Severe protein-calorie malnutrition Status: unchanged Magaly Rosales N.P. Sep 29, 2018 23:37
[2018-09-30] VITALS: BP 122/71
[2018-09-30] MEDS: D5 1/2NS 1,000 ML IV SCH ×2 (01:22→03:06)
--- NOTE | 2018-09-30 02:15 | Progress Note ---
DATE: 09/29/2018 CARDIOLOGY PROGRESS NOTE SUBJECTIVE: No new complaints. No chest pain noted. OBJECTIVE: VITAL SIGNS: Blood pressure 107/55, heart rate 89, respiratory rate 20, and afebrile. LUNGS: Clear. CARDIAC: Regular. Normal S1, S2 with a fourth heart sound. ABDOMEN: Soft. EXTREMITIES: No edema. LABORATORY DATA: White count 5 and hemoglobin 12.8. Sodium 141, potassium 3.4, bicarb 27, BUN 10, and creatinine 0.9. Albumin 3.2. Troponin negative. TSH 8. IMPRESSION: 1. Noncardiac chest pain. 2. Acute on chronic diastolic and systolic congestive heart failure. 3. Hypothyroidism. 4. Hypovolemia. 5. Dehydration. 6. Hypokalemia. PLAN: 1. Adjust IV fluids. 2. Replace potassium. 3. Continue anti-platelet therapy. 4. No additional cardiovascular workup is anticipated at this time. Herman Torres M.D. DR: RAQUEL JOB#: [id number] CC:
--- NOTE | 2018-09-30 03:39 | NUR ---
NURSE NOTES: Patient in bed asleep with no S/S of distress at this time. Will continue to monitor.
[2018-09-30 04:00] VITALS: BP 115/65
[2018-09-30] MEDS ORDERED: Levothyroxine 25mcg tab ORAL SCH (06:30)
[2018-09-30 06:55] LABS: BASOPHILS % (AUTO) 3.5 % (0.0-2.0); EOSINOPHILS % (AUTO) 5.5 % (0.0-3.0); HEMATOCRIT 38.3 % (42.0-52.0); HEMOGLOBIN 13.1 G/DL (14.2-18.0); MEAN CORPUSCULAR VOLUME 94 FL (80-99); MONOCYTES % (AUTO) 10.3 % (1.0-10.0); NEUTROPHILS % (AUTO) 37.7 % (45.0-75.0); PLATELET COUNT 205 K/UL (150-450); RED BLOOD COUNT 4.08 M/UL (4.70-6.10); RED CELL DISTRIBUTION WIDTH 13.4 % (11.6-14.8); WHITE BLOOD COUNT 4.3 K/UL (4.8-10.8)
[2018-09-30 07:02] LABS: ANION GAP 7 mmol/L (5-15); BLOOD UREA NITROGEN 11 mg/dL (7-18); CALCIUM 8.5 MG/DL (8.5-10.1); CARBON DIOXIDE 28 MMOL/L (21-32); CHLORIDE 109 MMOL/L (98-107); SODIUM 143 MMOL/L (136-145)
--- NOTE | 2018-09-30 07:39 | NUR ---
HAND-OFF: Report given to Vance Cornejo RN. Patient in bed with no S/S of distress noted. Endorsed plan of care.
[2018-09-30 08:00] VITALS: BP 112/59
--- NOTE | 2018-09-30 08:37 | NUR ---
NURSE NOTES: Received pt report from Delgado EVANGELISTA. Pt awake about to have breakfast. On security monitor and pt has no signs of cardiac or respiratory distress. Bed locked and in lowest position. Call light with in reach. Will continue to follow plan of care.
[2018-09-30] MEDS: Aspirin EC 81mg tab ORAL SCH (09:41)
[2018-09-30] MEDS: Heparin 5000 units/ml inj SUBQ SCH ×2 (09:43→21:13)
--- NOTE | 2018-09-30 09:45 | Pulmonology Progress Note ---
Assessment/Plan Assessment/Plan ASSESSMENT acute CHF systolic and diastolic non cardiac chest pain Hx of HTN with HTN heart disease Dehydration Severe protein calorie malnutrition Hypothyroidism with elevated TSH ? new onset, Failure to thrive PLAN OF CARE tele ECHO with rEF 45%, global LV hypokinesis, gr 2 diastolic dysfunction fup with cardio recs hold anti HTN for now troponin x 2 negative ; tele with SR, no acute ischemic changes; pt ruled out for acute AK no orthostatic changes CP non cardiac as per cardio O2 PRN to keep pulse ox above 90% pulmonary toilet PRN s/p Solu-Cortef x1 gentle IV fluids K and Mg stable this am after K replacement 09/29 monitor renal parameters, lytes started on levothyroxine 25 mcg day, repeat TSH in 3 wks carotid duplex Venous duplex swallow eval done, diet texture as per ST recs dietary eval re protein supplements calorie count PT eval and treatment DVT prophylaxis supportive care probably can be transferred to [place] if OK with cardio case discussed and evaluated by supervising physician Subjective Allergies: Coded Allergies: No Known Allergies (Unverified , 09/28/18) Subjective denies chest pain, pulse ox stable on RA Objective Last 24 Hour Vital Signs Date Time Temp Pulse Resp B/P (MAP) Pulse Ox O2 Delivery O2 Flow Rate FiO2 09/30/18 08:00 98.5 92 18 112/59 (76) 95 09/30/18 04:00 79 09/30/18 04:00 97.5 80 21 115/65 (82) 97 09/30/18 00:00 73 09/30/18 00:00 98.6 85 19 122/71 (88) 97 09/29/18 23:57 77 18 96 Room Air 21 09/29/18 21:00 Room Air 09/29/18 21:00 88 89 93 09/29/18 20:00 97.4 89 19 123/69 (87) 96 09/29/18 20:00 88 09/29/18 16:53 77 72 87 09/29/18 16:00 97.4 74 20 119/60 (79) 96 09/29/18 16:00 83 09/29/18 12:00 80 09/29/18 12:00 97.5 77 18 114/61 (78) 95 09/29/18 09:50 80 18 96 Room Air 21 Intake and Output 09/29/18 09/30/18 19:00 07:00 Intake Total 240 ml 120 ml Output Total 250 ml 950 ml Balance -10 ml -830 ml Intake Oral 240 ml 120 ml Output Urine Total 250 ml 950 ml # Voids 2 Objective General Appearance: no acute distress, very pleasant thin elderly male in NAD HEENT: normocephalic, mucous membranes moist Respiratory/Chest: lungs clear with moderate air exchange Cardiovascular: normal rate Abdomen: normal bowel sounds, soft, non tender, non distended Extremities: no edema, pedal pulses normal Neurologic/Psychiatric: abnormal gait, alert, responsive Musculoskeletal: atrophy - BLE Laboratory Tests 09/30/18 06:10: White Blood Count 4.3L, Red Blood Count 4.08L, Hemoglobin 13.1L, Hematocrit 38.3L, Mean Corpuscular Volume 94, Mean Corpuscular Hemoglobin 32.0H, Mean Corpuscular Hemoglobin Concent 34.1, Red Cell Distribution Width 13.4, Platelet Count 205, Mean Platelet Volume 5.6L, Neutrophils (%) (Auto) 37.7L, Lymphocytes (%) (Auto) 43.0, Monocytes (%) (Auto) 10.3H, Eosinophils (%) (Auto) 5.5H, Basophils (%) (Auto) 3.5H, Sodium Level 143, Potassium Level 4.0, Chloride Level 109H, Carbon Dioxide Level 28, Anion Gap 7, Blood Urea Nitrogen 11, Creatinine 1.0, Estimat Glomerular Filtration Rate , Glucose Level 112H, Calcium Level 8.5, Magnesium Level 2.2 Current Medications Medications (Trade) Dose Ordered Sig/[place] Route PRN Reason Start Time Stop Time Status Last Admin Dose Admin Acetaminophen (Tylenol) 650 mg Q4H PRN ORAL fever 09/28/18 09:30 10/28/18 09:29 Albuterol/ Ipratropium (Albuterol/ Ipratropium) 3 ml Q4H PRN HHN Shortness of Breath 09/28/18 09:30 10/03/18 09:29 Aspirin (Ecotrin) 81 mg DAILY ORAL 09/29/18 09:00 10/29/18 08:59 09/29/18 09:32 Clonidine HCl (Catapres Tab) 0.1 mg Q4H PRN ORAL For High Blood Pressure 09/28/18 09:30 10/28/18 09:29 Dextrose (Dextrose 50%) 25 ml Q30M PRN IV Hypoglycemia 09/28/18 09:30 10/28/18 09:29 Dextrose (Dextrose 50%) 50 ml Q30M PRN IV Hypoglycemia 09/28/18 09:30 10/28/18 09:29 Dextrose/Sodium Chloride 1,000 ml @ 50 mls/hr Q20H IV 09/28/18 09:22 10/28/18 09:21 09/30/18 03:06 Heparin Sodium (Porcine) (Heparin 5000 units/ml) 5,000 units EVERY 12 HOURS SUBQ 09/28/18 21:00 10/28/18 20:59 09/29/18 21:33 Levothyroxine Sodium (Synthroid) 50 mcg DAILY@0630 ORAL 10/01/18 06:30 10/30/18 06:29 Lorazepam (Ativan 2mg/ml 1ml) 0.5 mg Q4H PRN IV For Anxiety 09/28/18 09:30 10/05/18 09:29 Morphine Sulfate (Morphine Sulfate) 1 mg Q4H PRN IVP For Pain 7-09/28/18 09:30 10/05/18 09:29 Nitroglycerin (Ntg) 0.4 mg Q5M X 3 DOSES PRN SL Prn Chest Pain 09/28/18 09:30 10/28/18 09:29 Ondansetron HCl (Zofran) 4 mg Q6H PRN IVP Nausea & Vomiting 09/28/18 09:30 10/28/18 09:29 Polyethylene Glycol (Miralax) 17 gm HSPRN PRN ORAL Constipation 09/28/18 09:30 10/28/18 09:29 Potassium Chloride (K-Dur) 20 meq ONCE ORAL 09/29/18 11:30 10/29/18 11:45 09/29/18 12:13 Promethazine HCl/ Codeine (Phenergan with Codeine) 5 ml Q4H PRN ORAL For Cough 09/28/18 09:30 10/28/18 09:29 Temazepam (Restoril) 15 mg HSPRN PRN ORAL Insomnia 09/28/18 09:30 10/05/18 09:29 09/28/18 20:50 Allie Barboza [employer] SPL[employer]TER Sep 30, 2018 09:45
--- NOTE | 2018-09-30 10:20 | General Progress Note ---
Assessment/Plan Problem List: (1) Weakness ICD Codes: R53.1 - Weakness SNOMED: 71442899 (2) Hypothyroid ICD Codes: E03.9 - Hypothyroidism, unspecified SNOMED: 66404257 Qualifiers: Qualified Codes: E03.9 - Hypothyroidism, unspecified (3) Dehydration ICD Codes: E86.0 - Dehydration SNOMED: 51378883 (4) Chest pressure ICD Codes: R07.89 - Other chest pain SNOMED: 469178752 Status: stable, progressing, unchanged Assessment/Plan: pt diet cardio neph endo f/u cbc bmp am dc plan w hh if clear Subjective Constitutional: Reports: weakness Allergies: Coded Allergies: No Known Allergies (Unverified , 09/28/18) All Systems: reviewed and negative except above Subjective sleepy calm Objective Last 24 Hour Vital Signs Date Time Temp Pulse Resp B/P (MAP) Pulse Ox O2 Delivery O2 Flow Rate FiO2 09/30/18 09:40 84 18 95 Room Air 21 09/30/18 08:00 98.5 92 18 112/59 (76) 95 09/30/18 04:00 79 09/30/18 04:00 97.5 80 21 115/65 (82) 97 09/30/18 00:00 73 09/30/18 00:00 98.6 85 19 122/71 (88) 97 09/29/18 23:57 77 18 96 Room Air 21 09/29/18 21:00 Room Air 09/29/18 21:00 88 89 93 09/29/18 20:00 97.4 89 19 123/69 (87) 96 09/29/18 20:00 88 09/29/18 16:53 77 72 87 09/29/18 16:00 97.4 74 20 119/60 (79) 96 09/29/18 16:00 83 09/29/18 12:00 80 09/29/18 12:00 97.5 77 18 114/61 (78) 95 Intake and Output 09/29/18 09/30/18 19:00 07:00 Intake Total 240 ml 120 ml Output Total 250 ml 950 ml Balance -10 ml -830 ml Intake Oral 240 ml 120 ml Output Urine Total 250 ml 950 ml # Voids 2 Laboratory Tests 09/30/18 06:10: White Blood Count 4.3L, Red Blood Count 4.08L, Hemoglobin 13.1L, Hematocrit 38.3L, Mean Corpuscular Volume 94, Mean Corpuscular Hemoglobin 32.0H, Mean Corpuscular Hemoglobin Concent 34.1, Red Cell Distribution Width 13.4, Platelet Count 205, Mean Platelet Volume 5.6L, Neutrophils (%) (Auto) 37.7L, Lymphocytes (%) (Auto) 43.0, Monocytes (%) (Auto) 10.3H, Eosinophils (%) (Auto) 5.5H, Basophils (%) (Auto) 3.5H, Sodium Level 143, Potassium Level 4.0, Chloride Level 109H, Carbon Dioxide Level 28, Anion Gap 7, Blood Urea Nitrogen 11, Creatinine 1.0, Estimat Glomerular Filtration Rate , Glucose Level 112H, Calcium Level 8.5, Magnesium Level 2.2 Height (Feet): 5 Height (Inches): 7.00 Weight (Pounds): 130 General Appearance: lethargic EENT: normal ENT inspection Neck: normal alignment Cardiovascular: normal peripheral pulses, normal rate, regular rhythm Respiratory/Chest: chest wall non-tender, lungs clear, normal breath sounds Abdomen: normal bowel sounds, non tender, soft Extremities: normal inspection Edema: no edema noted Arm (L), no edema noted Arm (R), no edema noted Leg (L), no edema noted Leg (R), no edema noted Pedal (L), no edema noted Pedal (R), no edema noted Generalized Neurologic: motor weakness Skin: normal pigmentation, warm/dry Mendel Robles DO Sep 30, 2018 10:20
[2018-09-30 12:00] VITALS: BP 115/60
--- NOTE | 2018-09-30 15:30 | Consultation ---
DATE OF CONSULTATION: 09/30/2018 ENDOCRINOLOGY CONSULTATION: CONSULTING PHYSICIAN: Demar Flores M.D. REFERRING PHYSICIAN: Mendel Robles D.O. REASON FOR CONSULTATION: Hypothyroidism. HISTORY OF PRESENT ILLNESS: The patient is an 83-year-old male who presented to the emergency department for evaluation of generalized weakness. After disinfecting spraying in his house, started to feeling weak after the shortness of breath and chest heaviness. Because of the smell he went to stay in his car, having chills presented to the hospital not feeling well. As a part of evaluation, thyroid function was obtained, which showed an elevated TSH. TSH was up to 8. Endocrinology was consulted. PAST MEDICAL HISTORY: Insomnia, hypothyroidism. PAST SURGICAL HISTORY: Left knee surgery. MEDICATIONS: Reviewed and reconciled. ALLERGIES TO MEDICATION: None. SOCIAL HISTORY: No smoking, alcohol, or drug use. FAMILY HISTORY: Noncontributory. REVIEW OF SYSTEMS: As per HPI. LABORATORY VALUES: Thyroid function as discussed in the present illness. Sodium 142, potassium 4, chloride 109, bicarbonate 28, BUN 9, creatinine 1.2, glucose of 111. Lactic acid 1.2. TSH of 8. PHYSICAL EXAMINATION: GENERAL: Awake. VITAL SIGNS: Blood pressure 132/87, temperature 98.2, respiratory rate 18. HEENT: Pupils are equal and reactive to light. Sclerae are anicteric. NECK: No JVD. HEART: Regular. LUNGS: Clear. ABDOMEN: Positive bowel sounds. EXTREMITIES: No clubbing, cyanosis, or edema. DIAGNOSES: 1. Hypothyroidism. 2. Noncardiac chest pain. 3. Acute on chronic CHF. 4. Dehydration. PLAN: 1. Increase the levothyroxine to 50 mcg. 2. Continue cardiac care. 3. Follow the patient closely during hospital stay. 4. Repeat thyroid function in 2 to 3 weeks. Thank you, Dr. Robles, for the courtesy of consultation. Demar Flores M.D. DR: FAHAD JOB#: [id number] CC: ARGENIS
[2018-09-30 16:00] VITALS: BP 123/67
--- NOTE | 2018-09-30 17:48 | NUR ---
CASE MANAGEMENT: INITIAL REVIEW 09/28/2018 83 YO M HOLLYA FROM HOME CC: GEN WEAKNESS. PMHx: NONE STATED SI:ACS. WEAKNESS. T 97.9 HR 92 RR 18 B/P 147/82 SATS 94% ON RA WBC 4.2 GLU 142 BNP 1102 IS: NS BOLUS X2 PATIENT ADMITTED TO TELE 09/28/2018 @ 0712 DCP: PATIENT TO BE DISCHARGED TO HOME ONCE MEDICALLY CLEARED. PLAN OF CARE: 1. PT, OT, and dietary followup. 2. Antibiotics per Infectious Diseases. 3. Endocrine evaluation, Synthroid. 4. Cardiology evaluation. 09/29/2018 SI:ACS. WEAKNESS. T 97.5 HR 77 RR 18 B/P 114/61 SATS 95% ON RA K 3.4 CL 108 GLU 111 CA 8.2 TBILI 1.1 ALP 44 IS: IVF @ 50 mL/HR ASA PO QD SYNTHROID PO QD TELE STATUS DCP: PATIENT TO BE DISCHARGED TO HOME ONCE MEDICALLY CLEARED. PLAN OF CARE: 1. PT, OT, and dietary followup. 2. Antibiotics per Infectious Diseases. 3. Endocrine evaluation, Synthroid. 4. Cardiology evaluation. 09/30/2018 SI:ACS. WEAKNESS. T 97.5 HR 80 RR 21 B/P 115/65 SATS 97% ON RA WBC 4.3 CL 109 GLU 112 TROPONIN (-) IS: IVF @ 50 mL/HR ASA PO QD SYNTHROID PO QD TELE STATUS DCP: PATIENT TO BE DISCHARGED TO HOME ONCE MEDICALLY CLEARED. PLAN OF CARE: 1. PT, OT, and dietary followup. 2. Antibiotics per Infectious Diseases. 3. Endocrine evaluation, Synthroid. 4. Cardiology evaluation. Addendum: 10/01/18 at 0941 by Cata Melara CM INTERQUAL MET
--- NOTE | 2018-09-30 19:21 | NUR ---
NURSE NOTES: Received report from Vance Cornejo RN. Patient in bed AAO X4 with no complaints of acute pain or discomfort noted at this time. Kept clean, dry, and comfortable in bed at all times. Able to ambulate to use the bathroom or offered urinal PRN. IV line intact and patent with prescribed fluids running as ordered. Patient is placed on continuous cardiac monitoring per protocol. Safety precaution in place; siderails X2-3 up, call light within reach, brakes and alarm on at all times. Needs and wants anticipated and attended, will continue plan of care and monitor for any changes noted. CM on the case for Home health placement
[2018-09-30 20:00] VITALS: BP 130/69
--- NOTE | 2018-09-30 20:41 | NUR ---
HAND-OFF: Report given to Delgado RN . pt is in stable condition.
--- NOTE | 2018-09-30 23:54 | Neurology Progress Note ---
Objective Physical Exam Last Vital Signs Date Time Temp Pulse Resp B/P (MAP) Pulse Ox O2 Delivery O2 Flow Rate FiO2 09/30/18 21:00 95 82 88 09/30/18 21:00 Room Air 09/30/18 20:00 98.6 18 130/69 (89) 97 09/30/18 09:40 21 Laboratory Tests Test 09/30/18 06:10 White Blood Count 4.3 K/UL (4.8-10.8) L Red Blood Count 4.08 M/UL (4.70-6.10) L Hemoglobin 13.1 G/DL (14.2-18.0) L Hematocrit 38.3 % (42.0-52.0) L Mean Corpuscular Volume 94 FL (80-99) Mean Corpuscular Hemoglobin 32.0 PG (27.0-31.0) H Mean Corpuscular Hemoglobin Concent 34.1 G/DL (32.0-36.0) Red Cell Distribution Width 13.4 % (11.6-14.8) Platelet Count 205 K/UL (150-450) Mean Platelet Volume 5.6 FL (6.5-10.1) L Neutrophils (%) (Auto) 37.7 % (45.0-75.0) L Lymphocytes (%) (Auto) 43.0 % (20.0-45.0) Monocytes (%) (Auto) 10.3 % (1.0-10.0) H Eosinophils (%) (Auto) 5.5 % (0.0-3.0) H Basophils (%) (Auto) 3.5 % (0.0-2.0) H Sodium Level 143 MMOL/L (136-145) Potassium Level 4.0 MMOL/L (3.5-5.1) Chloride Level 109 MMOL/L (98-107) H Carbon Dioxide Level 28 MMOL/L (21-32) Anion Gap 7 mmol/L (5-15) Blood Urea Nitrogen 11 mg/dL (7-18) Creatinine 1.0 MG/DL (0.55-1.30) Estimat Glomerular Filtration Rate mL/min (>60) Glucose Level 112 MG/DL (74-106) H Calcium Level 8.5 MG/DL (8.5-10.1) Magnesium Level 2.2 MG/DL (1.8-2.4) Impression/Recommendations Problems: (1) Dehydration (2) Chest pressure (3) Hypothyroid Assessment & Plan: Commence Levothyroxine at 25mcg with possible increase to 35 -50mcg. (4) Weakness (5) Failure to thrive (6) Severe protein-calorie malnutrition Status: stable, progressing, unchanged Magaly Rosales N.P. Sep 30, 2018 23:54
[2018-10-01] VITALS: BP 118/72
--- NOTE | 2018-10-01 03:30 | Progress Note ---
DATE: 09/30/2018 CARDIOLOGY PROGRESS NOTE SUBJECTIVE: The patient without any new complaints. No chest pain or shortness of breath. OBJECTIVE: VITAL SIGNS: Blood pressure 112/59, pulse 92, respirations 18. Monitored rhythm sinus. CHEST: Chest wall without tenderness. LUNGS: Clear. CARDIAC: Regular rhythm and rate. Normal S1, S2 with a 1/6 systolic apical murmur. ABDOMEN: Soft, nontender. EXTREMITIES: No edema. LABORATORY DATA: White count 4.3 and hemoglobin 13.1. Potassium 4, BUN 11, creatinine 1, and magnesium 2.2. Troponins have been negative. IMPRESSION: 1. Noncardiac chest pain. 2. Hypertensive heart disease. 3. Acute on chronic systolic and diastolic congestive heart failure. 4. Hypokalemia. PLAN: 1. Maintain antihypertensive regimen to include angiotensin-converting enzyme inhibitor. 2. Thyroid replacement. 3. Antiplatelet therapy. Discontinue telemetry. 4. No additional cardiovascular workup presently planned. Herman Torres M.D. DR: MICHAEL JOB#: [id number] CC:
[2018-10-01 04:00] VITALS: BP 121/64
[2018-10-01] MEDS: D5 1/2NS 1,000 ML IV SCH (06:15)
--- NOTE | 2018-10-01 06:30 | NUR ---
TRANSFER TO FLOOR: Patient transferred to [facility] from TELE, per Ursula Torres MD. Report given to Hazel Oliveira RN. Belongings and medications checked and noted. Transferred orders per protocol. Patient in stable condition with no S/S of distress at the time. Endorsed plan of care.
--- NOTE | 2018-10-01 06:35 | General Progress Note ---
Assessment/Plan Problem List: (1) Hypothyroid ICD Codes: E03.9 - Hypothyroidism, unspecified SNOMED: 29800014 Qualifiers: Qualified Codes: E03.9 - Hypothyroidism, unspecified (2) Chest pressure ICD Codes: R07.89 - Other chest pain SNOMED: 326437226 (3) Dehydration ICD Codes: E86.0 - Dehydration SNOMED: 08648386 (4) Weakness ICD Codes: R53.1 - Weakness SNOMED: 90509244 Status: stable, progressing, unchanged Assessment/Plan: continue Levothyroxine 50 mcg daily repeat thyroid function in 3 weeks as OP Subjective Allergies: Coded Allergies: No Known Allergies (Unverified , 09/28/18) All Systems: reviewed and negative except above Subjective events noted Objective Last 24 Hour Vital Signs Date Time Temp Pulse Resp B/P (MAP) Pulse Ox O2 Delivery O2 Flow Rate FiO2 10/01/18 04:00 98.2 85 18 121/64 (83) 98 10/01/18 04:00 68 10/01/18 00:00 97.5 86 20 118/72 (87) 96 10/01/18 00:00 70 09/30/18 21:00 95 82 88 09/30/18 21:00 Room Air 09/30/18 20:00 78 09/30/18 20:00 98.6 95 18 130/69 (89) 97 09/30/18 16:00 97.7 105 18 123/67 (85) 97 09/30/18 16:00 102 09/30/18 12:00 87 09/30/18 12:00 98.2 79 20 115/60 (78) 96 09/30/18 09:40 84 18 95 Room Air 21 09/30/18 09:00 Room Air 09/30/18 08:00 98.5 92 18 112/59 (76) 95 Intake and Output 09/30/18 10/01/18 18:59 06:59 Intake Total 480 ml Output Total 550 ml Balance -70 ml Intake Oral 480 ml Output Urine Total 550 ml # Voids 1 Height (Feet): 5 Height (Inches): 7.00 Weight (Pounds): 130 General Appearance: no apparent distress Neck: normal alignment Cardiovascular: normal rate Respiratory/Chest: decreased breath sounds Abdomen: normal bowel sounds Pelvis: normal external exam Objective Current Medications Medications (Trade) Dose Ordered Sig/Eugenia Route PRN Reason Start Time Stop Time Status Last Admin Dose Admin Acetaminophen (Tylenol) 650 mg Q4H PRN ORAL fever 09/28/18 09:30 10/28/18 09:29 Albuterol/ Ipratropium (Albuterol/ Ipratropium) 3 ml Q4H PRN HHN Shortness of Breath 09/28/18 09:30 10/03/18 09:29 Aspirin (Ecotrin) 81 mg DAILY ORAL 09/29/18 09:00 10/29/18 08:59 09/30/18 09:41 Clonidine HCl (Catapres Tab) 0.1 mg Q4H PRN ORAL For High Blood Pressure 09/28/18 09:30 10/28/18 09:29 Dextrose (Dextrose 50%) 25 ml Q30M PRN IV Hypoglycemia 09/28/18 09:30 10/28/18 09:29 Dextrose (Dextrose 50%) 50 ml Q30M PRN IV Hypoglycemia 09/28/18 09:30 10/28/18 09:29 Dextrose/Sodium Chloride 1,000 ml @ 50 mls/hr Q20H IV 09/28/18 09:22 10/28/18 09:21 10/01/18 06:15 Heparin Sodium (Porcine) (Heparin 5000 units/ml) 5,000 units EVERY 12 HOURS SUBQ 09/28/18 21:00 10/28/18 20:59 09/30/18 21:13 Levothyroxine Sodium (Synthroid) 50 mcg DAILY@0630 ORAL 10/01/18 06:30 10/30/18 06:29 10/01/18 06:00 Lisinopril (Zestril) 10 mg DAILY ORAL 10/01/18 09:00 10/31/18 08:59 Lorazepam (Ativan 2mg/ml 1ml) 0.5 mg Q4H PRN IV For Anxiety 09/28/18 09:30 10/05/18 09:29 Morphine Sulfate (Morphine Sulfate) 1 mg Q4H PRN IVP For Pain 7-10 09/28/18 09:30 10/05/18 09:29 Nitroglycerin (Ntg) 0.4 mg Q5M X 3 DOSES PRN SL Prn Chest Pain 09/28/18 09:30 10/28/18 09:29 Ondansetron HCl (Zofran) 4 mg Q6H PRN IVP Nausea & Vomiting 09/28/18 09:30 10/28/18 09:29 Polyethylene Glycol (Miralax) 17 gm HSPRN PRN ORAL Constipation 09/28/18 09:30 10/28/18 09:29 Promethazine HCl/ Codeine (Phenergan with Codeine) 5 ml Q4H PRN ORAL For Cough 09/28/18 09:30 10/28/18 09:29 Temazepam (Restoril) 15 mg HSPRN PRN ORAL Insomnia 09/28/18 09:30 10/05/18 09:29 09/28/18 20:50 Demar Flores MD Oct 01, 2018 06:35
[2018-10-01] MEDS ORDERED: Nitroglycerin Subl 0.4mg tab SL PRN (06:45)
[2018-10-01] MEDS ORDERED: D5 1/2NS 1,000 ML IV SCH (06:50)
[2018-10-01] MEDS ORDERED: Albuterol/Ipratropium 3ml neb HHN PRN (06:51)
[2018-10-01] MEDS ORDERED: LORazepam Inj 2mg/ml 1ml IV PRN (06:51)
[2018-10-01] MEDS ORDERED: Promethazine/Codeine 5ml UD ORAL PRN (06:52)
[2018-10-01] MEDS ORDERED: Morphine Sulfate 2mg/ml Inj(IV/IM USE ONLY) IVP PRN (06:52)
--- NOTE | 2018-10-01 07:30 | NUR ---
NURSE NOTES: Patient is in bed awake and able to verbalize needs. Patient is stable. Denies pain or SOB. Patient encouraged to use call light for assistance, verbalized understanding. Patient is in bed in locked and lowest position with call light within reach. Will continue to monitor.
[2018-10-01 08:00] VITALS: BP 126/72
[2018-10-01 08:20] LABS: HEMOGLOBIN 12.4 G/DL (14.2-18.0); MEAN CORPUSCULAR VOLUME 92 FL (80-99); PLATELET COUNT 129 K/UL (150-450); RED BLOOD COUNT 4.21 M/UL (4.70-6.10); RED CELL DISTRIBUTION WIDTH 16.5 % (11.6-14.8); WHITE BLOOD COUNT 3.2 K/UL (4.8-10.8)
[2018-10-01 08:31] LABS: ANION GAP 6 mmol/L (5-15); BLOOD UREA NITROGEN 28 mg/dL (7-18); CALCIUM 9.6 MG/DL (8.5-10.1); CARBON DIOXIDE 30 MMOL/L (21-32); CHLORIDE 103 MMOL/L (98-107); CREATININE 1.4 MG/DL (0.55-1.30); POTASSIUM 4.1 MMOL/L (3.5-5.1); SODIUM 139 MMOL/L (136-145)
[2018-10-01] MEDS ORDERED: Heparin 5000 units/ml inj SUBQ SCH (09:00)
[2018-10-01] MEDS ORDERED: Aspirin EC 81mg tab ORAL SCH (09:00)
[2018-10-01] MEDS ORDERED: Lisinopril 10mg tab ORAL SCH ×2 (09:00)
--- NOTE | 2018-10-01 09:25 | NUR ---
PT DISCHARGE NOTE Patient at independent/supervised level with all functional mobility, no further skilled inpatient PT intervention indicated. Patient discharged from PT, cleared to ambulate with nursing supervision, Regi EVANGELISTA notified. No DME needs identified at this time. Addendum: 10/01/18 at 1104 by RC MARTINEZ PT Amended: Links added.
[2018-10-01] MEDS ORDERED: Miralax 17gm pkt ORAL PRN (09:30)
--- NOTE | 2018-10-01 10:56 | NUR ---
*-* NO INSURANCE INFORMATION IN THE BAR UNABLE TO SENF CLINICALS OR REVIEWS *-*
[2018-10-01 12:00] VITALS: BP 124/67
--- NOTE | 2018-10-01 12:16 | General Progress Note ---
Assessment/Plan Problem List: (1) Weakness ICD Codes: R53.1 - Weakness SNOMED: 85879205 (2) Hypothyroid ICD Codes: E03.9 - Hypothyroidism, unspecified SNOMED: 51654410 Qualifiers: Qualified Codes: E03.9 - Hypothyroidism, unspecified (3) Dehydration ICD Codes: E86.0 - Dehydration SNOMED: 83690126 (4) Chest pressure ICD Codes: R07.89 - Other chest pain SNOMED: 504154396 Status: stable, progressing, unchanged Assessment/Plan: pt diet cardio neph endo f/u cbc bmp am dc w hh if clear Subjective Constitutional: Reports: weakness Allergies: Coded Allergies: No Known Allergies (Unverified , 09/28/18) All Systems: reviewed and negative except above Subjective wants to go home calm Objective Last 24 Hour Vital Signs Date Time Temp Pulse Resp B/P (MAP) Pulse Ox O2 Delivery O2 Flow Rate FiO2 10/01/18 09:03 126/72 10/01/18 09:00 Room Air 10/01/18 09:00 97 100 108 10/01/18 08:00 97.7 79 19 126/72 (90) 97 10/01/18 06:55 80 18 96 Room Air 21 10/01/18 04:00 98.2 85 18 121/64 (83) 98 10/01/18 04:00 68 10/01/18 00:00 97.5 86 20 118/72 (87) 96 10/01/18 00:00 70 09/30/18 21:00 95 82 88 09/30/18 21:00 Room Air 09/30/18 20:00 78 09/30/18 20:00 98.6 95 18 130/69 (89) 97 09/30/18 16:00 97.7 105 18 123/67 (85) 97 09/30/18 16:00 102 Intake and Output 09/30/18 10/01/18 18:59 06:59 Intake Total 480 ml 120 ml Output Total 550 ml 250 ml Balance -70 ml -130 ml Intake Oral 480 ml 120 ml Output Urine Total 550 ml 250 ml # Voids 1 2 Laboratory Tests 10/01/18 08:00: White Blood Count 3.2L, Red Blood Count 4.21L, Hemoglobin 12.4L, Hematocrit 39.0L, Mean Corpuscular Volume 92, Mean Corpuscular Hemoglobin 29.4, Mean Corpuscular Hemoglobin Concent 31.8L, Red Cell Distribution Width 16.5H, Platelet Count 129L, Mean Platelet Volume 8.2, Neutrophils (%) (Auto) , Lymphocytes (%) (Auto) , Monocytes (%) (Auto) , Eosinophils (%) (Auto) , Basophils (%) (Auto) , Differential Total Cells Counted 100, Neutrophils % ( Manual) 52, Lymphocytes % (Manual) 34, Monocytes % (Manual) 8, Eosinophils % ( Manual) 4H, Basophils % (Manual) 2, Band Neutrophils 0, Platelet Estimate DecreasedL, Platelet Morphology Normal, Anisocytosis 1+, Sodium Level 139, Potassium Level 4.1, Chloride Level 103, Carbon Dioxide Level 30, Anion Gap 6, Blood Urea Nitrogen 28H, Creatinine 1.4H, Estimat Glomerular Filtration Rate , Glucose Level 105, Calcium Level 9.6 Height (Feet): 5 Height (Inches): 7.00 Weight (Pounds): 130 General Appearance: alert EENT: normal ENT inspection Neck: normal alignment Cardiovascular: normal peripheral pulses, normal rate, regular rhythm Respiratory/Chest: chest wall non-tender, lungs clear, normal breath sounds Abdomen: normal bowel sounds, non tender, soft Extremities: normal inspection Edema: no edema noted Arm (L), no edema noted Arm (R), no edema noted Leg (L), no edema noted Leg (R), no edema noted Pedal (L), no edema noted Pedal (R), no edema noted Generalized Neurologic: responsive, motor weakness Skin: normal pigmentation, warm/dry Mendel Robles DO Oct 01, 2018 12:16
--- NOTE | 2018-10-01 13:37 | Infectious Diseases Prog Note ---
Assessment/Plan Assessment/Plan The patient is an 83-year-old male with, Status post fall. No evidence of infectious process. Afebrile. Normal white blood cells. Left fifth finger no evidence of cellulitis. Rule out probable bacteremia. Blood Cx NGTD PLAN: - Monitor the patient off of antibiotics - Monitor CBC and BMP. - f/u Blood Cx Subjective Allergies: Coded Allergies: No Known Allergies (Unverified , 09/28/18) Subjective Afebrile No leukocytosis Objective Vital Signs Last 24 Hour Vital Signs Date Time Temp Pulse Resp B/P (MAP) Pulse Ox O2 Delivery O2 Flow Rate FiO2 10/01/18 12:00 98.1 95 18 124/67 (86) 97 10/01/18 09:03 126/72 10/01/18 09:00 Room Air 10/01/18 09:00 97 100 108 10/01/18 08:00 97.7 79 19 126/72 (90) 97 10/01/18 06:55 80 18 96 Room Air 21 10/01/18 04:00 98.2 85 18 121/64 (83) 98 10/01/18 04:00 68 10/01/18 00:00 97.5 86 20 118/72 (87) 96 10/01/18 00:00 70 09/30/18 21:00 95 82 88 09/30/18 21:00 Room Air 09/30/18 20:00 78 09/30/18 20:00 98.6 95 18 130/69 (89) 97 09/30/18 16:00 97.7 105 18 123/67 (85) 97 09/30/18 16:00 102 Height (Feet): 5 Height (Inches): 7.00 Weight (Pounds): 130 Objective CHEST: CTAB, No W HEART: RRR, S1 and S2. ABDOMEN: Soft and nontender. EXTREMITIES: The patient has a left fifth toe suture and swelling. No evidence of inflammation or infection. NEUROLOGIC: Awake and alert. Microbiology Date/Time Source Procedure Growth Status 09/29/18 12:48 Blood Blood Culture - Preliminary NO GROWTH AFTER 24 HOURS Resulted 09/29/18 12:40 Blood Blood Culture - Preliminary NO GROWTH AFTER 24 HOURS Resulted Laboratory Tests Test 10/01/18 08:00 White Blood Count 3.2 K/UL (4.8-10.8) L Red Blood Count 4.21 M/UL (4.70-6.10) L Hemoglobin 12.4 G/DL (14.2-18.0) L Hematocrit 39.0 % (42.0-52.0) L Mean Corpuscular Volume 92 FL (80-99) Mean Corpuscular Hemoglobin 29.4 PG (27.0-31.0) Mean Corpuscular Hemoglobin Concent 31.8 G/DL (32.0-36.0) L Red Cell Distribution Width 16.5 % (11.6-14.8) H Platelet Count 129 K/UL (150-450) L Mean Platelet Volume 8.2 FL (6.5-10.1) Neutrophils (%) (Auto) % (45.0-75.0) Lymphocytes (%) (Auto) % (20.0-45.0) Monocytes (%) (Auto) % (1.0-10.0) Eosinophils (%) (Auto) % (0.0-3.0) Basophils (%) (Auto) % (0.0-2.0) Differential Total Cells Counted 100 Neutrophils % (Manual) 52 % (45-75) Lymphocytes % (Manual) 34 % (20-45) Monocytes % (Manual) 8 % (1-10) Eosinophils % (Manual) 4 % (0-3) H Basophils % (Manual) 2 % (0-2) Band Neutrophils 0 % (0-8) Platelet Estimate Decreased L Platelet Morphology Normal Anisocytosis 1+ Sodium Level 139 MMOL/L (136-145) Potassium Level 4.1 MMOL/L (3.5-5.1) Chloride Level 103 MMOL/L (98-107) Carbon Dioxide Level 30 MMOL/L (21-32) Anion Gap 6 mmol/L (5-15) Blood Urea Nitrogen 28 mg/dL (7-18) H Creatinine 1.4 MG/DL (0.55-1.30) H Estimat Glomerular Filtration Rate mL/min (>60) Glucose Level 105 MG/DL (74-106) Calcium Level 9.6 MG/DL (8.5-10.1) Current Medications Medications (Trade) Dose Ordered Sig/Eugenia Route PRN Reason Start Time Stop Time Status Last Admin Dose Admin Acetaminophen (Tylenol) 650 mg Q4H PRN ORAL fever 10/01/18 06:50 7/17/19 06:49 Albuterol/ Ipratropium (Albuterol/ Ipratropium) 3 ml Q4H PRN HHN Shortness of Breath 10/01/18 06:51 10/06/18 06:50 Aspirin (Ecotrin) 81 mg DAILY ORAL 10/01/18 09:00 10/29/18 08:59 10/01/18 09:03 Dextrose (Dextrose 50%) 25 ml Q30M PRN IV Hypoglycemia 10/01/18 07:00 10/28/18 09:29 Dextrose (Dextrose 50%) 50 ml Q30M PRN IV Hypoglycemia 10/01/18 07:00 10/28/18 09:29 Heparin Sodium (Porcine) (Heparin 5000 units/ml) 5,000 units EVERY 12 HOURS SUBQ 10/01/18 09:00 10/28/18 20:59 Levothyroxine Sodium (Synthroid) 50 mcg DAILY@0630 ORAL 10/02/18 06:30 10/30/18 06:29 Lisinopril (Zestril) 10 mg DAILY ORAL 10/01/18 09:00 10/31/18 08:59 10/01/18 09:03 Ondansetron HCl (Zofran) 4 mg Q6H PRN IVP Nausea & Vomiting 10/01/18 06:52 10/31/18 06:51 Polyethylene Glycol (Miralax) 17 gm HSPRN PRN ORAL Constipation 10/01/18 09:30 10/28/18 09:29 Promethazine HCl/ Codeine (Phenergan with Codeine) 5 ml Q4H PRN ORAL For Cough 10/01/18 06:52 10/31/18 06:51 Temazepam (Restoril) 15 mg HSPRN PRN ORAL Insomnia 10/01/18 06:52 10/08/18 06:51 Herman Jacob MD Oct 01, 2018 13:37
--- NOTE | 2018-10-01 14:23 | Pulmonology Progress Note ---
Assessment/Plan Problems: (1) Failure to thrive (2) Severe protein-calorie malnutrition Assessment/Plan all noted meds reviewed notes reviewed symptomatic treatment dc planning dvt prophylaxis Subjective ROS Limited/Unobtainable: No Constitutional: Reports: no symptoms HEENT: Repors: no symptoms Respiratory: Reports: no symptoms Allergies: Coded Allergies: No Known Allergies (Unverified , 09/28/18) Objective Last 24 Hour Vital Signs Date Time Temp Pulse Resp B/P (MAP) Pulse Ox O2 Delivery O2 Flow Rate FiO2 10/01/18 12:00 98.1 95 18 124/67 (86) 97 10/01/18 09:03 126/72 10/01/18 09:00 Room Air 10/01/18 09:00 97 100 108 10/01/18 08:00 97.7 79 19 126/72 (90) 97 10/01/18 06:55 80 18 96 Room Air 21 10/01/18 04:00 98.2 85 18 121/64 (83) 98 10/01/18 04:00 68 10/01/18 00:00 97.5 86 20 118/72 (87) 96 10/01/18 00:00 70 09/30/18 21:00 95 82 88 09/30/18 21:00 Room Air 09/30/18 20:00 78 09/30/18 20:00 98.6 95 18 130/69 (89) 97 09/30/18 16:00 97.7 105 18 123/67 (85) 97 09/30/18 16:00 102 Intake and Output 09/30/18 10/01/18 19:00 07:00 Intake Total 480 ml 120 ml Output Total 550 ml 250 ml Balance -70 ml -130 ml Intake Oral 480 ml 120 ml Output Urine Total 550 ml 250 ml # Voids 1 2 General Appearance: WD/WN HEENT: atraumatic Respiratory/Chest: chest wall non-tender, normal breath sounds Cardiovascular: normal rate, regular rhythm Abdomen: normal bowel sounds, non distended Extremities: no cyanosis Skin: no rash Microbiology Date/Time Source Procedure Growth Status 09/29/18 12:48 Blood Blood Culture - Preliminary NO GROWTH AFTER 24 HOURS Resulted 09/29/18 12:40 Blood Blood Culture - Preliminary NO GROWTH AFTER 24 HOURS Resulted Laboratory Tests 10/01/18 08:00: White Blood Count 3.2L, Red Blood Count 4.21L, Hemoglobin 12.4L, Hematocrit 39.0L, Mean Corpuscular Volume 92, Mean Corpuscular Hemoglobin 29.4, Mean Corpuscular Hemoglobin Concent 31.8L, Red Cell Distribution Width 16.5H, Platelet Count 129L, Mean Platelet Volume 8.2, Neutrophils (%) (Auto) , Lymphocytes (%) (Auto) , Monocytes (%) (Auto) , Eosinophils (%) (Auto) , Basophils (%) (Auto) , Differential Total Cells Counted 100, Neutrophils % ( Manual) 52, Lymphocytes % (Manual) 34, Monocytes % (Manual) 8, Eosinophils % ( Manual) 4H, Basophils % (Manual) 2, Band Neutrophils 0, Platelet Estimate DecreasedL, Platelet Morphology Normal, Anisocytosis 1+, Sodium Level 139, Potassium Level 4.1, Chloride Level 103, Carbon Dioxide Level 30, Anion Gap 6, Blood Urea Nitrogen 28H, Creatinine 1.4H, Estimat Glomerular Filtration Rate , Glucose Level 105, Calcium Level 9.6 Current Medications Medications (Trade) Dose Ordered Sig/Eugenia Route PRN Reason Start Time Stop Time Status Last Admin Dose Admin Acetaminophen (Tylenol) 650 mg Q4H PRN ORAL fever 10/01/18 06:50 10/31/18 06:49 Albuterol/ Ipratropium (Albuterol/ Ipratropium) 3 ml Q4H PRN HHN Shortness of Breath 10/01/18 06:51 10/06/18 06:50 Aspirin (Ecotrin) 81 mg DAILY ORAL 10/01/18 09:00 10/29/18 08:59 10/01/18 09:03 Dextrose (Dextrose 50%) 25 ml Q30M PRN IV Hypoglycemia 10/01/18 07:00 10/28/18 09:29 Dextrose (Dextrose 50%) 50 ml Q30M PRN IV Hypoglycemia 10/01/18 07:00 10/28/18 09:29 Heparin Sodium (Porcine) (Heparin 5000 units/ml) 5,000 units EVERY 12 HOURS SUBQ 10/01/18 09:00 10/28/18 20:59 Levothyroxine Sodium (Synthroid) 50 mcg DAILY@0630 ORAL 10/02/18 06:30 10/30/18 06:29 Lisinopril (Zestril) 10 mg DAILY ORAL 10/01/18 09:00 10/31/18 08:59 10/01/18 09:03 Ondansetron HCl (Zofran) 4 mg Q6H PRN IVP Nausea & Vomiting 10/01/18 06:52 10/31/18 06:51 Polyethylene Glycol (Miralax) 17 gm HSPRN PRN ORAL Constipation 10/01/18 09:30 10/28/18 09:29 Promethazine HCl/ Codeine (Phenergan with Codeine) 5 ml Q4H PRN ORAL For Cough 10/01/18 06:52 10/31/18 06:51 Temazepam (Restoril) 15 mg HSPRN PRN ORAL Insomnia 10/01/18 06:52 10/08/18 06:51 Fabricio Arevalo MD Oct 01, 2018 14:22
--- NOTE | 2018-10-01 14:30 | NUR ---
CHARGE NURSE NOTES: bautista Ivy social media marketing manager on the Home Health set up.
--- NOTE | 2018-10-01 15:56 | NUR ---
DISCHARGE PLANNING: NOTE CLINICALS FAXED TO [facility] F: [phone] AWAITING FAX CONFIRMATION Addendum: 10/02/18 at 1127 by Cata Melara CM PATIENT ACCEPTED BY [facility] FOR HH
--- NOTE | 2018-10-01 16:00 | NUR ---
NURSE NOTES: Patient discharged home as ordered. Patient is stable. Denies pain or SOB. Patient was given thorough patient teaching by RN. Patient verbalized understanding. Patient will follow up with Dr. vieira on monday for prescriptions. Patient instructed to grain picker medication from [facility], verbalized understanding. Dr. Flores paged to send prescription to pharmacy x3. Charge nurse aware. Patient has all belongings. Skin is clean, dry, and intact. No IV access. Patient assisted downstairs by RN without incident.
--- NOTE | 2018-10-01 16:30 | Progress Note ---
CARDIOLOGY PROGRESS NOTE DATE: 10/01/2018 SUBJECTIVE: The patient is anxious to go home. He has no chest pain, no shortness of breath. He is at his baseline mobility. OBJECTIVE: VITAL SIGNS: Blood pressure 126/72, pulse 79, and respirations 19. LUNGS: Clear. CARDIAC: Regular. Normal S1, S2 with a fourth heart sound and 1/6 systolic murmur at apex. ABDOMEN: Soft. EXTREMITIES: No edema. LABORATORY DATA: White count 3.3, hemoglobin 12.4. Potassium 4.1, BUN 28, and creatinine 1.4. IMPRESSION: 1. Mild prerenal azotemia following diuresis. 2. No signs of acute coronary insufficiency. 3. Degenerative valve disease. 4. Acute on chronic systolic and diastolic congestive heart failure. PLAN: 1. Stable for discharge. 2. Encourage oral intake and fluids. 3. Maintain low-dose LUIS inhibitor for anti-failure benefit. 4. No role for diuretic therapy at this time. Herman Torres M.D. DR: ROC JOB#: [id number] CC:
--- NOTE | 2018-10-01 22:36 | Neurology Progress Note ---
Interim History Interim History ROS Limited/Unobtainable: No Objective Physical Exam Last Vital Signs Date Time Temp Pulse Resp B/P (MAP) Pulse Ox O2 Delivery O2 Flow Rate FiO2 10/01/18 12:00 98.1 95 18 124/67 (86) 97 10/01/18 09:00 Room Air 10/01/18 06:55 21 Laboratory Tests Test 10/01/18 08:00 White Blood Count 3.2 K/UL (4.8-10.8) L Red Blood Count 4.21 M/UL (4.70-6.10) L Hemoglobin 12.4 G/DL (14.2-18.0) L Hematocrit 39.0 % (42.0-52.0) L Mean Corpuscular Volume 92 FL (80-99) Mean Corpuscular Hemoglobin 29.4 PG (27.0-31.0) Mean Corpuscular Hemoglobin Concent 31.8 G/DL (32.0-36.0) L Red Cell Distribution Width 16.5 % (11.6-14.8) H Platelet Count 129 K/UL (150-450) L Mean Platelet Volume 8.2 FL (6.5-10.1) Neutrophils (%) (Auto) % (45.0-75.0) Lymphocytes (%) (Auto) % (20.0-45.0) Monocytes (%) (Auto) % (1.0-10.0) Eosinophils (%) (Auto) % (0.0-3.0) Basophils (%) (Auto) % (0.0-2.0) Differential Total Cells Counted 100 Neutrophils % (Manual) 52 % (45-75) Lymphocytes % (Manual) 34 % (20-45) Monocytes % (Manual) 8 % (1-10) Eosinophils % (Manual) 4 % (0-3) H Basophils % (Manual) 2 % (0-2) Band Neutrophils 0 % (0-8) Platelet Estimate Decreased L Platelet Morphology Normal Anisocytosis 1+ Sodium Level 139 MMOL/L (136-145) Potassium Level 4.1 MMOL/L (3.5-5.1) Chloride Level 103 MMOL/L (98-107) Carbon Dioxide Level 30 MMOL/L (21-32) Anion Gap 6 mmol/L (5-15) Blood Urea Nitrogen 28 mg/dL (7-18) H Creatinine 1.4 MG/DL (0.55-1.30) H Estimat Glomerular Filtration Rate mL/min (>60) Glucose Level 105 MG/DL (74-106) Calcium Level 9.6 MG/DL (8.5-10.1) Impression/Recommendations Problems: (1) Dehydration (2) Chest pressure (3) Hypothyroid Assessment & Plan: Commence Levothyroxine at 25mcg with possible increase to 35 -50mcg. (4) Weakness (5) Failure to thrive (6) Severe protein-calorie malnutrition Status: stable, progressing, unchanged Magaly Rosales N.P. Oct 01, 2018 22:36
--- NOTE | 2018-10-02 13:28 | Discharge Summary ---
Discharge Summary Discharge Summary _ DATE OF ADMISSION: 09/28/2018 DATE OF DISCHARGE: 10/01/2018 DISCHARGED BY: Dr Robles REASON FOR ADMISSION: 83 years old male with past medical history of hypothyroidism , was brought by microsoft dynamics consultant due to generalized weakness. Apparently he sprayed bojorquez spray in his house and started to feel weak and short of breath. Patient also reported chest heaviness. Because of the smell in his house , he went to stay in his car. Last night he had chills. In the morning he had difficulty holding up his head and walking. Patient admitted to not to drink a lot of fluids , he was unwilling to get up at night to go and urinate. He denied fever, chills ,palpitation ,chest pain, nausea , vomiting ,diarrhea , dysuria, abdominal pain , shortness of breath, visual changes or headache. Upon evaluation vital signs were stable. Laboratory work-up revealed no leukocytosis, hemoglobin 12.7, hematocrit 37.4. Urinalysis revealed no evidence of urinary tract infection. Stable electrolytes and renal parameters. Lactic acid 1.5. Glucose 142 9. TSH elevated 6.012. Albumin 3.6. EKG revealed sinus rhythm with occasional PVC, no acute ischemic changes. Prolonged QT interval. Chest x-ray demonstrated no acute cardiopulmonary pathology. Cardiomegaly noted. Patient subsequently was admitted to telemetry floor for further management. CONSULTANTS: car pusher Dr. Torres neurologist Dr. Trammell pulmonary Dr. Arevalo ID specialist Dr. Sparrow snuff container inspector Dr. Flores [facility]SE: Patient admitted to telemetry floor. Echocardiogram revealed reduced ejection fraction of 45% with global left ventricular hypokinesis and grade 2 diastolic dysfunction. Pressure Washer followed. Blood pressure was low and all antihypertensive medication initially were hold. Troponin x2 were negative. Telemetry showed sinus rhythm, no acute ischemic changes. Patient was ruled out for acute myocardial infarction. Orthostatic vital signs revealed no evidence of orthostatic changes. Per cardiology, chest pain was noncardiac. Carotid duplex was essentially unremarkable. Lipid panel was stable. Antiplatelet therapy with aspirin continued. Per car pusher, no role for diuretic therapy at this time. Pressure Washer recommended to maintain low-dose of LUIS inhibitor for anti- failure benefit. Per car pusher, no additional cardiovascular workup was planned at this time. Venous duplex bilateral lower extremity revealed no evidence of acute DVT. DVT prophylaxis provided. Supplemental oxygen provided as needed to keep pulse oximetry above 92%. Pulmonary toilet provided as needed. Patient received 1 dose of Solu-Cortef in the emergency department. Antitussive provided as needed Patient was on gentle IV hydration. Renal parameters and were electrolytes closely monitored, electrolytes corrected as needed, and nephrotoxins were avoided. Patient started on levothyroxine, repeat TSH in 3 weeks. Diet texture provided as per speech therapist recommendations with a strict aspiration precautions, after swallow evaluation was completed. Calorie count was implemented. Protein supplements implemented in plan of care as per registered dietitian recommendation. Patient was working with physical therapist . Fall precaution maintained. Supportive care provided. ID specialist followed. No evidence of infectious process. Patient remained afebrile, no leukocytosis. Blood cultures were negative. Infectious disease recommended to keep patient off antibiotics and observe closely. FINAL DIAGNOSES: Acute CHF systolic and diastolic Dehydration Noncardiac chest pain History of hypertension with hypertensive heart disease Degenerative valve disease Severe protein calorie malnutrition Hypothyroidism with elevated TSH , new onset Failure to thrive DISCHARGE MEDICATIONS: List of medication was sent with patient DISCHARGE INSTRUCTIONS: Patient was discharged home with home health services. Follow up with primary care provider in one week. Allie Barboza NP Oct 02, 2018 13:28
== END 2018-10-01 16:00 | disposition home health service (06) | DRG 291 ==
LOC: EDBD 05:49 → EMR 07:10 → 2E 07:12 → EDBEDREQ 07:30 → 3E 10-01 06:03
DX: I11.0 Hypertensive heart disease with heart failure (principal); E43 Unspecified severe protein-calorie malnutrition; N39.0 Urinary tract infection, site not specified; Z68.1 Body mass index [BMI] 19.9 or less, adult; I50.43 Acute on chronic combined systolic (congestive) and diastolic (congestive) heart failure; E03.9 Hypothyroidism, unspecified; G47.00 Insomnia, unspecified; E86.0 Dehydration; R07.89 Other chest pain; R62.7 Adult failure to thrive; Z91.81 History of falling; R53.1 Weakness
CPT/HCPCS: 36415; 71045; 80048; 80053; 80061; 81003; 82140; 82248; 82550; 83605; 83690; 83735; 83880; 84443; 84484; 84550; 85007; 85025; 85610; 85651; 85730; 87040; 93005; 93306; 93880; 93970; 94664; 96361; 96374; 99285; J8499